=== PATIENT | female | born 1955 | race Caucasian/White ===

== ENCOUNTER 2024-10-09 12:36 | Outpatient (REF) | payer MEDICARE, SELFPAY ==
--- NOTE | ~2024-10-09 | XR_ITS ---
CLINICAL HISTORY: M41.56 - Other secondary scoliosis, lumbar region 4 views lumbar spine Comparison: None Findings: Prominent S shaped thoracolumbar scoliosis with levoscoliosis lumbar spine measured at 28 degrees and less pronounced curvature to the right lower thoracic spine measured at 20 degrees. Mildly accentuated lumbar lordosis and increased thoracolumbar kyphosis. Degenerative appearing grade 1 retrolisthesis of L2 and L3. No apparent instability between flexion and extension. Normal vertebral body height. No acute compression fracture evident. Severe degenerative disc changes L1-2 through L4-5, slightly greater at L2-3 and L3-4. Moderate disc space narrowing with endplates intact at L5-S1. Pedicles intact. No destructive lesion apparent. Moderate facet arthritis [id number]-left at L2-3, L3-4 and L4-5 and greater to the left at L5-S1. SI joints intact. Nonobstructive bowel gas pattern. Included lung bases clear. Impression: Pronounced S shaped thoracolumbar scoliosis. Advanced degenerative disc changes L1-2 through L4-5. Moderate changes at L5-S1. No acute appearing bone abnormality. Degenerative alterations in alignment without apparent instability between flexion and extension. This document has been electronically signed by: Vasyl Solis MD on 10/11/2024 08:31:57
--- OUTSIDE RECORDS SUMMARY | 2024-10-09 15:10 | XMS_ITS | Clinical Summary ---
Author Organization [facility] Address [address] [place] [phone] Phone Care Team Providers Care Diaper Folder Name Role Phone Danielle Seo MD Primary Care Provider Encounters Date Type Department Care Team Description 08/07/2024 8:20 AM EST - 08/07/2024 11:59 PM EST Hospital Encounter [facility] [address] [phone] Encounter for screening mammogram for breast cancer Discharge Disposition: Home or Self Care from Last 3 Months Surgical History Surgery Date Site/Laterality Comments STEREOTACTIC CORE BIOPSY Social History Tobacco Use Types Packs/Day Years Used Date Smoking Tobacco: Never Assessed Sex and Gender Information Value Date Recorded Sex Assigned at Not on file Gender Identity Not on file Sexual Orientation Not on file Job Start Date Occupation Industry Not on file Not on file Not on file Obstetrics History Para Term AB IAB SAB Ectopic Multiple Livin g Live Births 1 Last Filed Vital Signs Vital Sign Reading Time Taken Comments Blood Pressure - - Pulse - - Temperature - - Respiratory Rate - - Oxygen Saturation - - Inhaled Oxygen Concentration - - Weight 63.5 kg (140 lb) 08/07/2024 8:46 AM EST Height 167.6 cm (5' 6 ) 08/07/2024 8:46 AM EST Body Mass Index 22.6 08/07/2024 8:46 AM EST Plan of Treatment Health Maintenance Due Date Last Done Comments Pneumococcal Vaccine: 65+ Years (1 of 2 - PCV) 1959 DTaP,Tdap,and Td Vaccines (1 - Tdap) 1972 Zoster Vaccines (1 of 2) 2003 RSV Immunization Patients 60+ Years Old (1 - Risk 60-74 years 1-dose series) 2013 Colorectal Cancer Screening: Colonoscopy 08/07/2022 Depression Screening 08/07/2022 Falls Risk Assessment 08/07/2022 Hepatitis C Screening 08/07/2022 Medicare Annual Wellness Visit 08/07/2022 Social Influencers of Health Screening 08/07/2022 COVID-19 Vaccine ( season) 2024 Influenza Vaccine (#1) 2024 Breast Cancer Screening 08/07/2026 08/07/20, 06/23/2023, 01/07/2022, Additional history exists Osteoporosis Screening (Bone Density Screening) 01/08/2032 01/07/2022 HIB Vaccines Aged Out No longer eligi ble based on patient's age to complete this topic HPV Vaccines Aged Out No longer eligi ble based on patient's age to complete this topic Hepatitis A Vaccines Aged Out No long er eligible based on patient's age to complete this topic Hepatitis B Vaccines Aged Out No long er eligible based on patient's age to complete this topic IPV Vaccines Aged Out No longer eligi ble based on patient's age to complete this topic MMR Vaccines Aged Out No longer eligi ble based on patient's age to complete this topic Meningococcal ACWY Vaccine Aged Out N o longer eligible based on patient's age to complete this topic RSV Immunization Patients Under 20 months Aged Out No longer eligible based on patient's age to complete this topic Varicella Vaccines Aged Out No longer eligible based on patient's age to complete this topic Procedures Procedure Name Priority Date/Time Associated Diagnosis Comments MG MAMMO DIGITAL SCREENING W MARILEE BILAT Routine 08/07/2024 9:09 AM EST Encounter for screening mammogram for breast cancer NICK DEXA AXIAL SKELETON Routine 01/07/2022 3:04 PM EDT Other specified disorders of bone density and structure, right thigh from Last 3 Months or Most Recently Relevant to Health Maintenance Results * MG Mammo Digital Screening w Marilee bilat (08/07/2024 9:09 AM EST) Anatomical Region Laterality Modality Breast Bilateral Mammography 08/07/2024 9:39 AM EST Impressions 08/07/2024 9:42 AM EST No evidence of breast malignancy. BI-RADS CATEGORY: 2 - BENIGN RECOMMENDATION: Screening bilateral mammogram is recommended in 1 year. Mammo Location: [facility], [address] [place] [address], [id number], . -------- FINAL REPORT -------- Dictated By: Erica Thompson Dictated Date: 08/07/2024 09:39 ET Assigned Physician: Erica Thompson Reviewed and Electronically Signed By: Erica Thompson Signed Date: 08/07/2024 09:42 ET Workstation ID: [id number] Transcribed By: Self Edit Transcribed Date: 08/07/2024 09:39 ET Narrative 08/07/2024 9:42 AM EST CLINICAL: 69 years old, Female, routine annual exam. COMPARISON: 08/24/2023, 07/03/2023, 06/21/2023, 01/07/2022 ?? TECHNIQUE: Bilateral MLO and CC views were obtained digitally with 3-D mammogram (digital breast tomosynthesis). Computer-aided detection was utilized in evaluation of this exam (CAD). FINDINGS: There is no evidence of suspicious mass or architectural distortion. ??No worrisome calcifications are evident. ??There has been no significant change from prior exam(s). ? Stable biopsy markers and postbiopsy changes in the left breast. BREAST DENSITY: B - There are scattered areas of fibroglandular density. Procedure Note Erica Thompson MD - 08/07/2024 CLINICAL: 69 years old, Female, routine annual exam. COMPARISON: 08/24/2023, 07/03/2023, 06/21/2023, 01/07/2022 TECHNIQUE: Bilateral MLO and CC views were obtained digitally with 3-Dmammogram (digital breast tomosynthesis). Computer-aided detection wasutilized in evaluation of this exam (CAD). FINDINGS: There is no evidence of suspicious mass or architectural distortion. Noworrisome calcifications are evident. There has been no significantchange from prior exam(s). Stable biopsy markers and postbiopsychanges in the left breast. BREAST DENSITY: B - There are scattered areas of fibroglandular density. IMPRESSION: No evidence of breast malignancy. BI-RADS CATEGORY: 2 - BENIGN RECOMMENDATION: Screening bilateral mammogram is recommended in 1 year. Mammo Location: [facility], [address] [place] [address], [id number], . -------- FINAL REPORT -------- Dictated By: Erica Thompson Dictated Date: 08/07/2024 09:39 ET Assigned Physician: Erica Thompson Reviewed and Electronically Signed By: Erica Thompson Signed Date: 08/07/2024 09:42 ET Workstation ID: [id number] Transcribed By: Self Edit Transcribed Date: 08/07/2024 09:39 ET Self Referral Sppl IMG BI PROCEDURES * NICK DEXA AXIAL SKELETON (01/07/2022 3:04 PM EDT) Anatomical Region Laterality Modality Mammography 01/07/2022 1:36 PM EDT Narrative 01/07/2022 3:04 PM EDT [facility] Diagnostic Imaging Department [address] [place] [id number] Patient: ??LISA SNYDER ?/Age/Sex: 1955 - F Unit#: ??[id number] ? Location/Status: ??SPDIMAM/REG CLI ? Mnemonic/Ordering Site: ??MAMDEXAAX/SPMAM Ordering Physician: ??KAVYA PETERS MD Nick Dexa Axial Skeleton - 01/07/22 - 1432 History: Low estrogen state due to menopause. Current smoker. Comparison: 02/10/17 Findings: Bone densitometry is performed utilizing dual energy x-ray absorptiometry (DXA) in the [employer] unit. The lumbar spine and proximal femora are evaluated in the AP projection. The FRAX questionaire was completed. The results indicate low bone mass (osteopenia), with a right total femur T- score of -1.1. There has been a statistically significant decrease in bone mineral density in the right total femur since the previous study. ??The detailed DEXA report will be mailed to the referring physician's office. DualFemur FRAX: 10-year Probability of Fracture: Major Osteoporotic 7.5 percent Hip 0.9 percent. IMPRESSION: Osteopenia. [id number] Dictating Physician: ??BRITTANIE ORTEGA MD Electronically Signed by: ??BRITTANIE ORTEGA MD Dic Date/Time: ??01/07/22 1503 Sign date/Time: ??01/07/22 1504 Procedure Note Brittanie Ortega MD - 08/24/2022 [facility] Diagnostic Imaging Department [address] [place] [address] Patient: LISA SNYDER D.O.B./Age/Sex: 1955 - 66 - F Unit#: [id number] [facility] Ordering Physician: KAVYA PETERS MD Nick Dexa Axial Skeleton - 01/07/22 - 1432 History: Low estrogen state due to menopause. Current smoker. Comparison: 02/10/17 Findings: Bone densitometry is performed utilizing dual energy x-ray absorptiometry(DXA) in the [employer] unit. The lumbar spine and proximal femora areevaluated in the AP projection. The FRAX questionaire was completed. The results indicate low bone mass (osteopenia), with a right total femurT- score of -1.1. There has been a statistically significant decrease inbone mineral density in the right total femur since the previous study. Thedetailed DEXA report will be mailed to the referring physician's office. Dual[employer]emur FRAX: 10-year Probability of Fracture: Major Osteoporotic 7.5percent Hip 0.9 percent. IMPRESSION: Osteopenia. [id number] Dictating Physician: BRITTANIE ORTEGA MD Electronically Signed by: BRITTANIE ORTEGA MD Dic Date/Time: 01/07/22 1503 Sign date/Time: 01/07/22 1504 Kavya Peters MD IMG BI PROCEDURES from Last 3 Months or Most Recently Relevant to Health Maintenance Care Teams Diaper Folder Relationship Specialty Start Date End Date Danielle Seo MD [address] [place] [phone] PCP - General Internal Medicine 07/31/24
== END 2024-10-09 12:37 | disposition home or self-care (01) ==
LOC: HO.HOSX 12:36
PROVIDERS: Visit Provider Neurological Surgery
DX: M48.062 Spinal stenosis, lumbar region with neurogenic claudication (principal); M41.56 Other secondary scoliosis, lumbar region
CPT/HCPCS: 72110; 99202

== ENCOUNTER → 2024-10-09 13:54 | Outpatient (BNV) | payer MEDICARE, SELFPAY | PROVIDERS: Visit Provider Radiology Diagnostic Radiology | DX: M41.57 Other secondary scoliosis, lumbosacral region (principal) | CPT/HCPCS: 72110 ==

== ENCOUNTER 2024-10-23 11:19 | Outpatient (AMB) | payer MEDICARE, SELFPAY ==
--- NOTE | 2024-10-23 11:49 | HO.SPINEOV ---
Intake Visit Reasons: F/u after MRI Intake Note: Ms. Low is here today to F/u on her MRI Results. Shortage Worker Required: No Allergies Sulfa (Sulfonamide Antibiotics) Allergy (Mild, Verified 10/23/24 11:52) Rash Assessment & Plan Assessment & Plan (1) Lumbar stenosis with neurogenic claudication: Code(s): M48.062 - Spinal stenosis, lumbar region with neurogenic claudication Category: Medical Plan Dear colleague, On 10/23/2024 I saw for follow-up Maureen Albrecht to review her latest MRI of the lumbar spine. Her history reveals that she developed back pain radiating to her hips with walking and predominantly standing and July. Subsequently she developed severe radiating pain down her left leg in an L5 distribution, which mostly has resolved but is still present. She was seen at [facility] where she was offered a scoliosis correction to address the symptoms. She came to see me for 2nd opinion. I ordered a new MRI of the lumbar spine which was done on 10/16/2024 at [place], which shows a disc herniation L4-5 on the left side causing not only central spinal stenosis but also compression of the exiting L4 and L5 nerve roots. This abnormality was not seen on the MRI of 2020. In my opinion, the patient is symptomatic from the L4-5 level and her symptoms are not related to her scoliotic thoracolumbar curve. In fact, the curve has been stable over years. I told the patient that I would offer her a L4-5 decompression with removal of the herniated disc to not only address the central stenosis but also to decompress the exiting nerve roots. Correction of the scoliotic curve would not be my 1st plan based on her history. She is going to think about this option and will get back to me. I spent 30 minutes in his consult to review imaging and to answer questions. Mikhail Pandya MD, PhD Spine Fellowship Trained Neurosurgeon Director, [facility] Coding Level of Care Code Est Pt Level 4 (46039) Diagnoses Lumbar stenosis with neurogenic claudication M48.062
--- OUTSIDE RECORDS SUMMARY | 2024-10-23 12:01 | XMS_ITS | Continuity of Care Document ---
Author Organization [facility] ter Address [address] [place] [id number]- Care Team Providers Care Budget Clerk Name Role Phone Danielle Seo MD Primary Care Physician [phone] Encounter 10/16/24 - 10/17/[address] [address]- Attending Physician: Not on Staff, Attending MD Referring Physician: Not on Staff, Referring MD Encounter Type: [facility] Allergies, Adverse Reactions, Alerts Substance Criticality Severity Reaction Reaction Severity Status Bactrim DS High criticality Moderate hives Ac tive Medications Albuterol (Eqv-ProAir HFA) 90 mcg/inh inhalation aerosol 2 puffs, Inhalation, Every 6 hours, # 8 Gm, 0 Refills, Maintenance, 03/20/24 8:19:00 AM EDT, [facility] #[id number], Partial fill upon patient request if the prescription is for a schedule II opioid drug., 2 puffs Inhalation Every 6 hours, 165, cm, 03/11/24 10:29:00 EDT, Height Start Date: 03/20/24 Status: Ordered Quantity: 8.0 Unit: g Repeat number: 1 aloe vera oral capsule 1 capsule, By Mouth, 2 times a day, # 60 capsule, 0 Refills, Maintenance, 01/31/19 11:15:13 AM EDT, Capsule Start Date: 01/31/19 Status: Ordered Quantity: 60.0 Unit: capsule Repeat number: 1 aspirin 81 mg oral tablet 2 tablet = 162 mg, By Mouth, Daily, # 90 tablet, 0 Refills, Maintenance, 01/31/19 11:15:02 AM EDT, Tablet Start Date: 01/31/19 Status: Ordered Quantity: 90.0 Unit: tablet Repeat number: 1 EpiPen 2-Mike 0.3 mg injectable kit = 0.3 mg, Intramuscular, Once, may repeat if necessary, # 1 kit, 11 Refills, Soft Stop, 01/16/23 1:58:00 PM EDT, [facility] #[id number], Partial fill upon patient request if the prescription is for a schedule II opioid drug., 165, cm, 04/07/22 15:39:00 EDT, Height Start Date: 01/16/23 Status: Ordered Quantity: 1.0 Unit: kit Repeat number: 12 estradiol 0.1 mg/g vaginal cream = 1 Gm, 0 Refills, Maintenance, 02/27/24 9:35:00 AM EDT, Partial fill upon patient request if the prescription is for a schedule II opioid drug. Start Date: 02/27/24 Status: Ordered Repeat number: 1 Robitussin DM Liquid By Mouth, Every 4 hours, 0 Refills, Maintenance, 03/11/24 10:15:00 AM EDT, Partial fill upon patient request if the prescription is for a schedule II opioid drug. Start Date: 03/11/24 Status: Ordered Repeat number: 1 Tylenol Extra Strength 500 mg oral tablet 1 tablet = 500 mg, By Mouth, 3 times a day, PRN as needed for pain, # 100 tablet, 0 Refills, Maintenance, 03/11/24 10:14:00 AM EDT, Tablet, Partial fill upon patient request if the prescription is for a schedule II opioid drug. Start Date: 03/11/24 Status: Ordered Quantity: 100.0 Unit: tablet Repeat number: 1 Vitamin C By Mouth, Daily, 0 Refills, Maintenance, 01/19/22 7:01:00 AM EDT, Partial fill upon patient request if the prescription is for a schedule II opioid drug. Start Date: 01/19/22 Status: Ordered Repeat number: 1 Vitamin D3 1000 intl units oral tablet 1 tablet = 1,000 International_Units, By Mouth, Daily, # 30 tablet, 0 Refills, Maintenance, 01/31/1911:16:13 AM EDT, Tablet Start Date: 01/31/19 Status: Ordered Quantity: 30.0 Unit: tablet Repeat number: 1 zinc (as acetate) 25 mg oral capsule See Instructions, 1 capsule EVERY OTHER DAY, 0 Refills, Maintenance, 09/05/24 12:38:00 PM EST, Partial fill upon patient request if the prescription is for a schedule II opioid drug. Start Date: 09/05/24 Status: Ordered Repeat number: 1 Problem List Condition Confirmation Course Effective Dates Status H ealth Status Informant Allergic rhinitis Confirmed Active Back pain Confirmed Active Bee sting reaction Confirmed Active Bradycardia Confirmed Active Discogenic cervical pain Confirmed Active Chronic low back pain Confirmed Active Chronic obstructive lung disease Confirmed Active Vaccine counseling Confirmed Active Decreased estrogen level Confirmed Active Degeneration of lumbar intervertebral disc Confirmed Active Degenerative joint disease involving multiple joints Confirmed Active Diverticula of intestine Confirmed Active Elevated blood-pressure reading without diagnosis of hypertension Confirmed Active History of folliculitis Confirmed Active H/O: TIA Confirmed Active History of basal cell carcinoma (BCC) of skin Confirmed Active Skin lesion of face Confirmed Active Lumbar pain with radiation down left leg Confirmed Active Lumbar radiculopathy Confirmed Active Menopausal symptom Confirmed Active Nicotine dependence Confirmed Active Patent foramen ovale Confirmed Active Health care maintenance Confirmed Active Medicare annual wellness visit, subsequent Confirmed Active Screening for viral disease Confirmed Active Low vitamin D level Confirmed Active Results Radiology Reports * Exam Date Time Procedure Performing Provider Status 10/16/24 8:22 AM MRI Lumbar Spine W/O Contrast Auth (Verified) Notes: (MRI Lumbar Spine W/O Contrast) Reason For Exam: Other secondary scoliosis, lumbar region;Other secondary scoliosis, lumbar region RESULT: MRI Lumbar Spine W/O Contrast [facility] VISIT NUMBER :[id number] Patient Name: Maureen Snyder Date of : 1955 Date of Exam: 10-16-2024 Referring Physician: Mikhail [facility] [address] [place] [id number] Exam: MR Lumbar Spine (C-) CPT 76587 Room Description: [facility] 1.5 HISTORY: Secondary scoliosis. Difficulty standing for long periods of time. Pain from the mid back to both hips. Left leg weakness. TECHNIQUE: Multiplanar multisequence MRI of the thoracic and lumbar spine without contrast. COMPARISON: 11/09/2020 FINDINGS: MRI OF THE THORACIC SPINE There is a mild-moderate rightward curvature of the thoracic spine on the coronal localizer images. Reversal of the cervical lordosis is noted on the localizer images with mild degenerative anterolisthesis of C7 on T1, T1 on T2, and T2 on T3. The thoracic vertebral bodies are normal in height. No marrow edema of the thoracic vertebrae. Loss of disc space height is most pronounced at T2-T3. Marginal osteophytes and facet arthroses are present at several levels. The thoracic cord is normal in caliber and signal. The paraspinal soft tissues are unremarkable. At T1-T2, there is mild degenerative anterolisthesis and facet arthrosis. No central canal stenosis. No right and mild left foraminal narrowing. At T2-T3, there is facet arthrosis. No central canal stenosis. Mild right and no left foraminal narrowing. At T3-T4, there is a small right paracentral disc extrusion extending superiorly with minimal central canal narrowing. Mild facet arthrosis. At T8-T9, there is a small left subarticular disc protrusion with mild indentation of the ventral thecal sac. No right and subtle left foraminal narrowing. At T9-T10, there is a right subarticular disc protrusion with mild right central canal narrowing. Mild foraminal narrowing. At T10-T11, there is a mild broad-based posterior disc bulge and facet arthrosis. No central canal stenosis. Probable mild bilateral foraminal narrowing. At T11-T12, there is facet arthrosis. Minimal central canal narrowing. MRI OF THE LUMBAR SPINE There is a mild left and moderate leftward curvature of the lumbar spine on the coronal localizer images. Subtle retrolisthesis of L2 on L3 is again noted. The lumbar vertebral bodies are unchanged in height. Severe loss of height of L1-L2, L2-L3, and L3-L4. Moderate-severe loss of height of L4-L5. Modic type I endplate change is present at L1-L2. Mild Modic type I endplate changes also present posteriorly at L3-L4 and L4-L5. Marginal osteophytes, facet arthroses, and vacuum disc phenomenon are present at multiple levels. Fatty atrophy of the posterior paraspinal musculature. No new acute retroperitoneal abnormality. Small gallstone. L1-L2: A concentric disc-osteophyte complexes more pronounced posteriorly. Mild facet arthrosis. Mild central canal narrowing and right subarticular recess narrowing. Moderate right and probable moderate left foraminal stenosis. L2-L3: Concentric disc-osteophyte complex with a superimposed calcified or ossified right paracentral disc extrusion extending above the level of the disc space. Mild central canal and right subarticular recess narrowing, not significantly changed. Mild-moderate right and minimal left foraminal narrowing. L3-L4: Concentric disc-osteophyte complex, facet arthrosis, and mild ligamentum flavum infolding. Mild central canal and subarticular recess narrowing. Mild-moderate right and mild left foraminal stenosis. L4-L5: Concentric disc-osteophyte complex and mild facet arthrosis. Superimposed left paracentral-subarticular disc protrusion. Probable left foraminal disc protrusion. Mild-moderate left central canal narrowing with left subarticular recess stenosis and crowding of the left L5 nerve roots. Mild right and severe left foraminal stenosis. L5-S1: Facet arthrosis. Minimal broad-based posterior disc bulge. Mild left subarticular recess narrowing without traversing nerve root impingement. Minimal right and moderate-severe left foraminal stenosis. IMPRESSION: Degenerative changes of the lumbar spine superimposed upon a S-shaped curvature of the thoracolumbar spine. No thoracic cord or cauda equina compression. Central canal and foraminal narrowing are present at multiple levels, and these findings can be correlated with the patient's symptoms and neurological examination. Electronically Signed By: Jaime Irvin MD Dictated By: Not on Staff CHARITO MD Dictated Date/Time: 10/17/24 5:03 pm Reviewed By: Not on Staff CHARITO MD Signed By: Not on Staff CHARITO MD Signed Date/Time: 10/17/24 5:03 pm Transcribed By: LEANNA Transcribed Date/Time: 10/17/24 5:03 pm * Exam Date Time Procedure Performing Provider Status 10/16/24 8:23 AM MRI Thoracic Spine W/O Contrast Auth (Verified) Notes: (MRI Thoracic Spine W/O Contrast) Reason For Exam: Other secondary scoliosis, lumbar region;Other secondary scoliosis, lumbar region RESULT: MRI Thoracic Spine W/O Contrast [facility] VISIT NUMBER :[id number] Patient Name: Maureen Snyder Date of : 1955 Date of Exam: 10-16-2024 Referring Physician: Mikhail [facility] [address] [place] [id number] Exam: MR Thoracic Spine (C-) CPT 34024 Room Description: [facility] 1.5 HISTORY: Secondary scoliosis. Difficulty standing for long periods of time. Pain from the mid back to both hips. Left leg weakness. TECHNIQUE: Multiplanar multisequence MRI of the thoracic and lumbar spine without contrast. COMPARISON: 11/09/2020 FINDINGS: MRI OF THE THORACIC SPINE There is a mild-moderate rightward curvature of the thoracic spine on the coronal localizer images. Reversal of the cervical lordosis is noted on the localizer images with mild degenerative anterolisthesis of C7 on T1, T1 on T2, and T2 on T3. The thoracic vertebral bodies are normal in height. No marrow edema of the thoracic vertebrae. Loss of disc space height is most pronounced at T2-T3. Marginal osteophytes and facet arthroses are present at several levels. The thoracic cord is normal in caliber and signal. The paraspinal soft tissues are unremarkable. At T1-T2, there is mild degenerative anterolisthesis and facet arthrosis. No central canal stenosis. No right and mild left foraminal narrowing. At T2-T3, there is facet arthrosis. No central canal stenosis. Mild right and no left foraminal narrowing. At T3-T4, there is a small right paracentral disc extrusion extending superiorly with minimal central canal narrowing. Mild facet arthrosis. At T8-T9, there is a small left subarticular disc protrusion with mild indentation of the ventral thecal sac. No right and subtle left foraminal narrowing. At T9-T10, there is a right subarticular disc protrusion with mild right central canal narrowing. Mild foraminal narrowing. At T10-T11, there is a mild broad-based posterior disc bulge and facet arthrosis. No central canal stenosis. Probable mild bilateral foraminal narrowing. At T11-T12, there is facet arthrosis. Minimal central canal narrowing. MRI OF THE LUMBAR SPINE There is a mild left and moderate leftward curvature of the lumbar spine on the coronal localizer images. Subtle retrolisthesis of L2 on L3 is again noted. The lumbar vertebral bodies are unchanged in height. Severe loss of height of L1-L2, L2-L3, and L3-L4. Moderate-severe loss of height of L4-L5. Modic type I endplate change is present at L1-L2. Mild Modic type I endplate changes also present posteriorly at L3-L4 and L4-L5. Marginal osteophytes, facet arthroses, and vacuum disc phenomenon are present at multiple levels. Fatty atrophy of the posterior paraspinal musculature. No new acute retroperitoneal abnormality. Small gallstone. L1-L2: A concentric disc-osteophyte complexes more pronounced posteriorly. Mild facet arthrosis. Mild central canal narrowing and right subarticular recess narrowing. Moderate right and probable moderate left foraminal stenosis. L2-L3: Concentric disc-osteophyte complex with a superimposed calcified or ossified right paracentral disc extrusion extending above the level of the disc space. Mild central canal and right subarticular recess narrowing, not significantly changed. Mild-moderate right and minimal left foraminal narrowing. L3-L4: Concentric disc-osteophyte complex, facet arthrosis, and mild ligamentum flavum infolding. Mild central canal and subarticular recess narrowing. Mild-moderate right and mild left foraminal stenosis. L4-L5: Concentric disc-osteophyte complex and mild facet arthrosis. Superimposed left paracentral-subarticular disc protrusion. Probable left foraminal disc protrusion. Mild-moderate left central canal narrowing with left subarticular recess stenosis and crowding of the left L5 nerve roots. Mild right and severe left foraminal stenosis. L5-S1: Facet arthrosis. Minimal broad-based posterior disc bulge. Mild left subarticular recess narrowing without traversing nerve root impingement. Minimal right and moderate-severe left foraminal stenosis. IMPRESSION: Degenerative changes of the lumbar spine superimposed upon a S-shaped curvature of the thoracolumbar spine. No thoracic cord or cauda equina compression. Central canal and foraminal narrowing are present at multiple levels, and these findings can be correlated with the patient's symptoms and neurological examination. Electronically Signed By: Jaime Irvin MD Dictated By: Not on Staff , CHARITO SIBLEY Dictated Date/Time: 10/17/24 5:03 pm Reviewed By: Not on Staff , CHARITO SIBLEY Signed By: Not on Staff , CHARITO SIBLEY Signed Date/Time: 10/17/24 5:03 pm Transcribed By: TS Transcribed Date/Time: 10/17/24 5:03 pm Social History Social History Type Response Smoking Status 10 or more cigarette s (1/2 pack or more)/day in last 30 days entered on: 01/31/19 Sex Sex Representation Female (finding) Patient Care team information Care Team Personnel Name: Gabbi SIBLEY, Danielle Tillman Position: S Physician - Primary Care Member Role: PCP [address]: [address] [place] [address], [address] Telecom: Care Team Related Persons Name: LISETH SNYDER Name: ÓSCAR SNYDER Insurance Providers Guarantor name: MAUREEN SNYDER Health Plan Information #: 1 Payer: MEDICARE PART B OUTPT Member Number: NA Policy Number: NA Group Number: NA Health Plan Information #: 2 Payer: [employer] Member Number: NA Policy Number: NA Group Number: NA
--- OUTSIDE RECORDS SUMMARY | 2024-10-23 12:01 | XMS_ITS | Patient Health Record ---
Author Organization [facility] Address [address] [place] [address] Care Team Providers Care Photo Manager Name Role Phone Kavya Quintana Unavailable [phone] MOE SAGEA Unavailable [phone] Allergies Allergen (clinical drug ingredient) Drug/Non Drug Allergy documented on EMR Reaction Allergy Type Onset Date Status sulfamethoxazole / trimethoprim Bactrim DS Rash/Hives Drug Allergy Active Results Component Value Reference Range Notes Urinalysis Reviewed date:01/15/2024 02:22:37 PM Interpretation: Performing Lab: Notes/Report: NITRITE NEG PH 5.0 PROTEIN NEG S.G 1.000 WBC NEG GLUCOSE NEG KETONES NEG UROBILINOGEN NEG BILIRUBIN NEG BLOOD LARGE Urine Culture, Routine-[id number] Reviewed date:01/19/2024 09:42:48 AM Interpretation: Performing Lab:Arlen Wick, [address], [address], [place], Phone - [phone], Director - [facility] Notes/Report: Urine Culture, Routine Final report Result 1 Escherichia coli Greater than 100,000 colony forming units per mL Cefazolin <=4 ug/mL Cefazolin with an MERRY <=16 predicts susceptibility to the oral agents cefaclor, cefdinir, cefpodoxime, cefprozil, cefuroxime, cephalexin, and loracarbef when used for therapy of uncomplicated urinary tract infections due to E. coli, Klebsiella pneumoniae, and Proteus mirabilis. Antimicrobial Susceptibility S = Susceptible; I = Intermediate; R = Resistant P = Positive; N = Negative MICS are expressed in micrograms per mL Antibiotic RSLT#1 RSLT#2 RSLT#3 RSLT#4 Amoxicillin/Clavulanic Acid S Ampicillin S Cefepime S Ceftriaxone S Cefuroxime S Ciprofloxacin S Ertapenem S Gentamicin S Imipenem S Levofloxacin S Meropenem S Nitrofurantoin S Piperacillin/Tazobactam S Tetracycline S Tobramycin S Trimethoprim/Sulfa S PDF Report Reviewed date:01/19/2024 10:19:31 AM Interpretation: Performing Lab:[facility] [place], [address], [address], [place], Phone - [phone], Director - [facility] Notes/Report: Urinalysis Reviewed date:02/09/2024 09:58:07 AM Interpretation: Performing Lab: Notes/Report: NITRITE NEG PH 5.0 PROTEIN NEG S.G 1.005 WBC POS GLUCOSE NEG KETONES NEG UROBILINOGEN NEG BILIRUBIN NEG BLOOD LG Urinalysis, Complete-[id number] Reviewed date:02/13/2024 09:52:22 AM Interpretation: Performing Lab:[facility], [address] [facility], Phone - [phone], Director - [place] Notes/Report: Clinical Information:SRC: URINE Clinical Information:SRC: URINE Specific [place] 1.005 1.005-1.030 pH 7.0 5.0-7.5 Urine-Color Yellow Yellow Appearance Clear Clear WBC Esterase 3+ Negative Protein Negative Negative/Trace Glucose Negative Negative Ketones Negative Negative Occult Blood Trace Negative Bilirubin Negative Negative Urobilinogen,Semi-Qn 0.2 0.2-1.0 mg/dL Nitrite, Urine Negative Negative Microscopic Examination See below: Micr oscopic was indicated and was performed. WBC 11-30 0 - 5 /hpf RBC None seen 0 - 2 /hpf Epithelial Cells (non renal) 0-10 0 - 10 /hpf Casts None seen None seen /lpf Bacteria Many None seen/Few Urine Culture, Routine-[id number] Reviewed date:02/13/2024 09:51:59 AM Interpretation: Performing Lab:[facility], [address], Phone - [phone], Director - [place] Notes/Report: Clinical Information:SRC: URINE Clinical Information:SRC: URINE Urine Culture, Routine Final report Result 1 Escherichia coli 50,000-100,000 colony forming units per mL Cefazolin <=4 ug/mL Cefazolin with an MERRY <=16 predicts susceptibility to the oral agents cefaclor, cefdinir, cefpodoxime, cefprozil, cefuroxime, cephalexin, and loracarbef when used for therapy of uncomplicated urinary tract infections due to E. coli, Klebsiella pneumoniae, and Proteus mirabilis. Antimicrobial Susceptibility S = Susceptible; I = Intermediate; R = Resistant P = Positive; N = Negative MICS are expressed in micrograms per mL Antibiotic RSLT#1 RSLT#2 RSLT#3 RSLT#4 Amoxicillin/Clavulanic Acid S Ampicillin S Cefepime S Ceftriaxone S Cefuroxime S Ciprofloxacin S Ertapenem S Gentamicin S Imipenem S Levofloxacin S Meropenem S Nitrofurantoin S Piperacillin/Tazobactam S Tetracycline S Tobramycin S Trimethoprim/Sulfa S PDF Report Reviewed date:02/13/2024 09:51:20 AM Interpretation: Performing Lab:Arlen Ngo, [address] [place] [address], Phone - [phone], Director - [place] Notes/Report: Clinical Information:SRC: URINE Urine Culture, Routine-[id number] Reviewed date:02/20/2024 05:32:28 PM Interpretation: Performing Lab:Arlen Wick, [address], [address], [place], Phone - [phone], Director - [facility] Notes/Report: Clinical Information:SRC: Clinical Information:SRC: Urine Culture, Routine Final report Result 1 Culture shows less than 10,000 colony forming units of bacteria per milliliter of urine. This colony count is not generally considered to be clinically significant. PDF Report Reviewed date:02/20/2024 05:33:15 PM Interpretation: Performing Lab:Pamela Horowitz Beatriz Lindsay, [facility] [address], [place], Phone - [phone], Director - [facility] Notes/Report: Clinical Information:SRC: Reason For Referral No Information Medications Medication SIG (Take, Route, Frequency, Duration) Notes Start Date End Date Status Tylenol 325 MG 1 tablet as needed Orally every 4 hrs Active Estradiol Vaginal Cream 0.01% 1 Gram to the affected area Vaginal/Vulva Twice a week for 90 Days 07/18/2024 Active Aspirin 162.5 MG 1 capsule Orally Onc e a day for 30 day(s) Active Vitamin C 500MG 1 ORAL daily for -3 [facility]- 08/03/2011 Active Aloe Vera 25 MG Orally unknown dose A ctive valACYclovir HCl 500 MG 2 TABS Orally TW ICE DAILY FOR 10 DAYS THEN 1 TAB DAILY FOR 90 DAYS. for 90 days 07/10/2024 Active Vitamin D3 1000 IU 1 ORAL daily for -3 [facility] 08/03/2011 Active Social History Tobacco Use: Social History Observation Description Date Details (start date - stop date) Current Smoker NA - NA AUDIT-C (Standard) Question Answer Notes Did you have a drink contain ing alcohol in the past year? Yes How often did you have six o r more drinks on one occasion in the past year? Never (0 point) How many drinks did you have on a typical day when you were drinking in the past year? 1 or 2 drinks (0 point) How often did you have a dri nk containing alcohol in the past year? Monthly or less (1 point) Points 1 Interpretation Negative Tobacco Control (Standard) Question Answer Notes Tobacco use: Current smoker How often do you smoke cigarettes? Every day How many cigarettes a day do you smoke? 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) Unspecified cerebral artery occlusion without mention of cerebral infarction (434.90) Active confirmed Major Problem Menopausal symptom (05870329) Symptomatic menopausal or female climacteric states (627.2) Active confirmed Major Problem Ventricular septal defect (65561162) Ventricular septal defect (745.4) Active confirmed Major Problem Gynecological examination normal (287404175143474) Routine gynecological examination (V72.31) Active confirmed Major Problem Screening for malignant neoplasm of colon (166445695) Special screening for malignant neoplasms, colon (V76.51) Active confirmed Major Vital Signs Temperature 98.1 degrees Fahrenheit 07/10/2024 Blood pressure diastolic 76 mm Hg 07/10/2024 Height 65.8 in 07/10/2024 Blood pressure systolic 128 mm Hg 07/10/2024 Weight 140 lbs 07/10/2024 BMI 22.73 kg/m2 07/10/2024 Encounters Encounter Location Date Provider Diagnosis [address] [place] [address] 12/01/2023 Kavya Quintana Encounter for screen ing mammogram for malignant neoplasm of breast Z12.31 ; Encounter for gynecological examination (general) (routine) with abnormal findings Z01.411 and Postmenopausal atrophic vaginitis N95.[address] [address] 01/15/2024 CHAD SAGE Dysuria R30.0 and Frequency of micturition R35.[address] [address] 02/09/2024 Kavya Quintana Urinary tract infection, site not specified N39.0 and Postmenopausal atrophic vaginitis N95.[address] [address] 07/10/2024 Kavya Quintana Other specified noninflammatory disorders of vulva and perineum N90.[address] [address] 01/15/2024 Kavya Quintana Abscess of vulva N76 .[address] [address] 01/18/2024 Kavya Quintana Total [address] [address] 02/23/2024 Kavya Quintana Total [address] [address] 07/10/2024 Kavya Quintana Total [address] [address] 07/12/2024 Kavya Quintana Total [address] [address] 07/18/2024 Kavya Quintana Total [address] [address] 07/18/2024 Kavya Quintana Assessments Encounter Date Diagnosis (ICD Code) Assessment Notes Treatment Notes Treatment Clinical Notes Section Notes 12/01/2023 Encounter for gynecological examination (general) (routine) with abnormal findings (ICD-10 - Z01.411) NO MORE PAP TESTS. 12/01/2023 Encounter for screening mammogram for malignant neoplasm of breast (ICD-10 - Z12.31) REGULAR MAMMOGRAMS AND SBE'S WERE RECOMMENDED. 01/15/2024 Dysuria (ICD-10 - R30.0) plenty of fluids orally , AZO as needed , Tylenol 3-4 times a day as needed , Call if not better. She prefers to start treatment of UTI prior to getting the culture results. Discussed it may or may not be an infection, it could be kidney stones. If no infection, I encouraged her to seek care either at ER or PCP. 01/15/2024 Abscess of vulva (ICD-10 - N76.4) 02/09/2024 Postmenopausal atrophic vaginitis (ICD-10 - N95.2) DISCUSSED FINDINGS AND RECOMMENDED INTRAVAGINAL ESTROGEN WHICH MAY DECREASE FREQUENCY OF UTI'S AND KEEP HER BLADDER MORE RESISTANT TO INFECTION. PAT AGREED. SHE HAS NO CONTRAINDICATIONS AND ACCEPTS RISKS. RX AND INSTRUCTIONS FOR ESTRADIOL CREAM USE WERE GIVEN. 02/09/2024 Urinary tract infection, site not specified (ICD-10 - N39.0) DISCUSSED UTI'S ASSOCIATED WITH SEXUAL ACTIVITY. RECOMMENDED MACRODANTIN 50 MG AFTER IC. INCREASE FLUID INTAKE. RX FOR AUGMENTIN WAS GIVEN WITH DETAILED INSTRUCTIONS. CALL IF SHE HAS FREQUENT UTI'S AND WILL REFER TO PVU. 07/10/2024 Other specified noninflammatory disorders of vulva and perineum (ICD-10 - N90.89) DISCUSSED FINDINGS AND PROBABLE HSV 1 OR HSV 2. HERPES CULTURE WAS OBTAINED. APPLY DESITIN OR VASELINE TO THE AREA. RX AND INSTRUCTIONS FOR VALTREX WERE GIVEN. SHE WILL NEED 1 GRAM TWICE DAILY FOR 10 DAYS, THEN 500 MG DAILY FOR 3 TO 6 MONTHS. 01/15/2024 Frequency of micturition (ICD-10 - R35.0) 12/01/2023 Postmenopausal atrophic vaginitis (ICD-10 - N95.2) DISCUSSED FINDINGS, DX AND TX OPTIONS. PAT IS ASYMPTOMATIC. Plan Of Treatment Pending Test Test Name Order Date MAMMOGRAM, SCREENING 12/29/2014 MAMMOGRAM, SCREENING 06/20/2017 MAMMOGRAM, SCREENING 06/28/2018 MAMMOGRAM, SCREENING 07/16/2020 MAMMOGRAM, SCREENING 10/31/2022 Urinalysis 04/01/2022 Urinalysis 03/20/2020 Urinalysis 07/16/2020 ONE SWAB 07/10/2024 COMPLETE URINALYSIS 09/25/2023 THIN PREP,HPV,ROGER IF HPV+ (>29YR)(DIAG) 10/31/2022 THIN PREP,HPV,ROGER IF HPV+ (>29YR)(SCRN) 06/28/2018 BONE DENSITY 07/22/2021 MM Digital Mammo Screening 07/22/2021 MM Digital Mammo Screening 12/01/2023 MM Digital Mammo Screening 10/31/2022 MM Digital Mammo Screening 07/16/2020 MM Digital Mammo Screening 03/20/2020 MM Digital Mammo Screening 06/28/2018 MM Digital Mammo Screening 06/20/2017 LT BREAST STEREOTACTIC CORE BX 3 Next Appt Details Provider Name:Kayva Moses castellon, 12/11/2024 09:00:00 AM, [address], [address], [place], [address], Insurance Providers Payer Name Payer Address Payer Phone Subscriber Number Group Number Insured Name Patient Relationship to Insured Coverage Start Date Coverage End Date MEDICARE [address] [facility] [place], [place] [id number] LISA SNYDER Self - patient is the insured MEDEX [address] [place] [address] [id number] LISA SNYDER Self - patient is the insured Medical (General) History Medical History History ICD Code Occlusion and stenosis of unspecified ce rebral artery I66.9 Ventricular septal defect Q21.0 Menopausal and female climacteric states N95.1 Postmenopausal atrophic vaginitis N95.2 Rectal abscess K61.1 Cellulitis of groin L03.314 Mammographic microcalcification found on diagnostic imaging of breast R92.0 Epidermal cyst L72.0 Abscess of vulva N76.4 Surgical History Surgery Date(Month/Year) [place] Teeth Gum Graft Colonoscopy Hospitalization History Reason Date(Month/Year) S/P Stroke 1997 1 Vaginal Delivery
--- OUTSIDE RECORDS SUMMARY | 2024-10-23 12:02 | XMS_ITS ---
Author Organization [facility] Address [address] [address] Care Team Providers Care Car Audio Installer Name Role Phone QuintanaFelicitasbakari Diaz [phone] Medications Medication SIG (Take, Route, Frequency, Duration) Notes Start Date End Date Status Estradiol Vaginal Cream 0.01% 1 Gram to the affected area Vaginal/Vulva Twice a week for 90 Days 07/18/2024 Active Encounters Encounter Location Date Provider Diagnosis [facility] [employer] [address] 07/18/2024 Kavya Quintana Plan Of Treatment Medication Medication Name Sig Start Date Stop Date Notes Estradiol Vaginal Cream 0.01% 1 Gram to the affected area Vaginal/Vulva Twice a week for 90 Days 07/18/2024 Next Appt Details Provider Name:Kavya castellon, 12/11/2024 09:00:00 AM, [address] [place] [address], [address], [place], [address], Progress Notes * VERENA SNYDEROB: [birth year] (69 yo F)Acc No.[id number]:07/18/2024 Patient:?JANELLE SNYDERLYN :1955???Age:69 Y???Sex:Female Address: [address], , [place], [address] * Refills? Start Estradiol Vaginal Cream Cream, 0.01%, Vaginal/Vulva, 42.5 Gram, 1 Gram to the affected area, Twice a week, 90 Days, Refills=4 * true * Date:? Generated for Printi ng/Stfean/Génesis on:?10/23/2024 12:01 PM EST
--- OUTSIDE RECORDS SUMMARY | 2024-10-23 12:02 | XMS_ITS ---
Author Organization [facility] Address [address] [place] [address] Care Team Providers Care Weigher And Crusher Name Role Phone Kavya Quintana Unavailable [phone] REASON FOR VISIT RESULTS Encounters Encounter Location Date Provider Diagnosis [facility] [address] [place] [address] 07/18/2024 Kavya Quintana Plan Of Treatment Next Appt Details Provider Name:Kavya castellon, 12/11/2024 09:00:00 AM, [address], [address], [place], [address], Progress Notes * VERENA SNYDEROB: [birth year] (69 yo F)Acc No.[id number]:07/18/2024 Patient:?JANELLE SNYDERLYN :1955???Age:69 Y???Sex:Female Address:[address], , [place], [address] * true * Date:? Generated for Armen luis/Stefan/eTransmitting on:?10/23/2024 12:01 PM EST
--- OUTSIDE RECORDS SUMMARY | 2024-10-23 12:02 | XMS_ITS ---
Author Organization [facility] [employer] [facility] Address [address] [place] [address] Care Team Providers Care Engineering Technologist Name Role Phone Kavya Quintana Unavailable [phone] REASON FOR VISIT WANTS AMOXCLAV (?) Encounters Encounter Location Date Provider Diagnosis [facility] [employer] [facility] [address] [place] [address] 07/12/2024 Kavya Quintana Plan Of Treatment Next Appt Details Provider Name:Kavya castellon, 12/11/2024 09:00:00 AM, [address], [address], [place], [address], Progress Notes * VERENA SNYDEROB: [birth year] (69 yo F)Acc No.[id number]:07/12/2024 Patient:?LILLIAN LISA :1955???Age:69 Y???Sex:Female Address: [address], , [place], [address] * true * Date:? Generated for Printi janelle/Stefan/eTransmitting on:?10/23/2024 12:01 PM EST
--- OUTSIDE RECORDS SUMMARY | 2024-10-23 12:02 | XMS_ITS | Clinical Summary ---
Author Organization [facility] Address [address] [place] [address] Phone Care Team Providers Care Washtub Worker Name Role Phone Danielle Seo MD Primary Care Provider Encounters Date Type Department Care Team Description 08/07/2024 8:20 AM EST - 08/07/2024 11:59 PM EST Hospital [facility] [address] [address] Encounter for screening mammogram for breast cancer Discharge Disposition: Home or Self Care from Last 3 Months Surgical History Surgery Date Site/Laterality Comments STEREOTACTIC CORE BIOPSY Social History Tobacco Use Types Packs/Day Years Used Date Smoking Tobacco: Never Assessed Comments No Sex and Gender Information Value Date Recorded Sex Assigned at Not on file Legal Sex Female 3:14 AM EST Gender Identity Not on file Sexual Orientation Not on file Obstetrics History Para Term [...] Health Maintenance Due Date Last Done Comments DTaP,Tdap,and Td Vaccines (1 - Tdap) 1972 Pneumococcal Vaccine: 50+ Years (1 of 2 - PCV) 1972 Zoster Vaccines (1 of 2) 2003 RSV Immunization Patients 60+ Years Old (1 - Risk 60-74 years 1-dose series) 2013 Colorectal Cancer Screening: Colonoscopy 08/07/2022 Depression Screening 08/07/2022 Falls Risk Assessment 08/07/2022 Hepatitis C Screening 08/07/2022 Medicare Annual Wellness Visit 08/07/2022 Social Influencers of Health Screening 08/07/2022 COVID-19 Vaccine ( season) 2024 Influenza Vaccine (#1) 2024 Breast Cancer Screening 08/07/2026 08/07/20 24, 06/23/2023, 01/07/2022, Additional history exists Osteoporosis Screening [...] patient's age to complete this topic Meningococcal B Vacine Aged Out No lo nger eligible based on patient's age to complete [...] year. Mammo Location: [facility], [address] [place] [address], [address], . -------- FINAL REPORT -------- Dictated By: Erica Thompson Dictated Date: 08/07/2024 09:39 ET Assigned Physician: Erica Thompson Reviewed and Electronically Signed By: Erica Thompson Signed Date: 08/07/2024 09:42 ET Workstation ID: [id number] Transcribed By: Self Edit Transcribed Date: 08/07/2024 [...] year. Mammo Location: [facility], [address] [place] [address], [address], . -------- FINAL REPORT -------- Dictated By: Erica Thompson Dictated Date: 08/07/2024 09:39 ET Assigned Physician: Erica Thompson Reviewed and Electronically Signed By: Erica Thompson Signed Date: 08/07/2024 09:42 ET Workstation ID: [id number] Transcribed By: Self Edit Transcribed Date: 08/07/2024 09:39 ET us Self Referral Sppl IMG BI PROCEDURES Final Resul t * NICK DEXA AXIAL SKELETON (01/07/2022 3:04 PM EDT) Anatomical Region Laterality Modality Mammography 01/07/2022 1:36 PM EDT Narrative 01/07/2022 3:[address] [facility] Diagnostic Imaging Department [address] [place] [id number] Patient: ??LISA SNYDER ?/Age/Sex: 1955 - Unit#: ??[id number] ? Location/Status: ??SPDIMAM/REG CLI ? Mnemonic/Ordering Site: ??MAMDEXAAX/SPMAM Ordering Physician: ??KAVYA PETERS MD Nick Dexa Axial Skeleton - 01/07/22 1432 History: Low estrogen state due to menopause. Current smoker. Comparison: 02/10/17 Findings: Bone densitometry is performed utilizing dual energy x-ray absorptiometry (DXA) in the [employer] unit. The lumbar spine and proximal femora [...] 7.5 percent Hip 0.9 percent. IMPRESSION: Osteopenia. [id number] Dictating Physician: ??BRITTANIE ORTEGA MD Electronically Signed by: ??BRITTANIE ORTEGA MD Dic Date/Time: ??01/07/22 1503 Sign date/Time: ??01/07/22 1504 Procedure Note Brittanie Ortega MD - 08/24/2022 [facility] Diagnostic Imaging Department [address] [place] [address] Patient: LILLIANLISA F /Age/Sex: 1955 - 66 - F Unit#: [id number] Location/Status: SPDIMAM/REG CLI Mnemonic/Ordering Site: MAMDEXAAX/SPMAM Ordering Physician: KAVYA PETERS MD Nick Dexa Axial Skeleton - 01/07/22 - 1432 History: Low estrogen state due to menopause. Current smoker. Comparison: 02/10/17 Findings: Bone densitometry is performed utilizing dual energy x-ray absorptiometry(DXA) in the [employer] unit. The lumbar spine and proximal femora [...] Osteoporotic 7.5percent Hip 0.9 percent. IMPRESSION: Osteopenia. [id number] Dictating Physician: BRITTANIE ORTEGA MD Electronically Signed by: BRITTANIE ORTEGA MD Dic Date/Time: 01/07/22 1503 Sign date/Time: 01/07/22 1504 Kavya Peters MD IMG BI PROCEDURES Final Re sult from Last 3 Months or Most Recently Relevant to Health Maintenance Insurance MEDICARE [facility] Care Teams Washtub Worker Relationship Specialty Start Date End Date Danielle Seo MD [address] [place] [address] PCP - General Internal Medicine 07/31/24
== END 2024-10-23 12:39 | disposition home or self-care (01) ==
PROVIDERS: Visit Provider Neurological Surgery
DX: M48.062 Spinal stenosis, lumbar region with neurogenic claudication (principal)
CPT/HCPCS: 99214

== ENCOUNTER → 2024-10-23 11:19 | Outpatient (BNVA) | payer MEDICARE, SELFPAY | PROVIDERS: Visit Provider Neurological Surgery | DX: M48.062 Spinal stenosis, lumbar region with neurogenic claudication (principal) | CPT/HCPCS: 99212 ==

== ENCOUNTER 2024-11-01 08:31 | Outpatient (AMB) | payer MEDICARE, SELFPAY ==
--- OUTSIDE RECORDS SUMMARY | 2024-11-01 08:41 | XMS_ITS ---
Author Organization [facility] [employer] [facility] Address [address] [place] [address] Care Team Providers Care Computer Numeric Control Setter Name Role Phone Kavya Quintana Unavailable [phone] REASON FOR VISIT WANTS AMOXCLAV (?) Encounters Encounter Location Date Provider Diagnosis [facility] [facility] [address] [place] [address] 07/12/2024 Kavya Quintana Plan Of Treatment Next Appt Details Provider Name:Kavya castellon, 12/11/2024 09:00:00 AM, [address], [address], [place], [address], Progress Notes * VERENA SNYDEROB: [birth year] (69 yo F)Acc No.[id number]:07/12/2024 Patient:?LILLIAN LISA :1955???Age:69 Y???Sex:Female Address:[address], , [place], [address] * true * Date:? Generated for Printi janelle/Stefan/eTransmitting on:?11/01/2024 08:41 AM EST
--- OUTSIDE RECORDS SUMMARY | 2024-11-01 08:41 | XMS_ITS ---
Author Organization [facility] Address [address] [facility] [address] [place] [address] Care Team Providers Care Tea Taster Name Role Phone Kavya Quintana Unavailable [phone] REASON FOR VISIT RESULTS Encounters Encounter Location Date Provider Diagnosis [facility] [address] [facility] [address] [place] [address] 07/18/2024 Kavya Quintana Plan Of Treatment Next Appt Details Provider Name:Kavya castellon, 12/11/2024 09:00:00 AM, [address] [facility], [address], [place], [address], Progress Notes * VERENA SNYDEROB: [birth year] (69 yo F)Acc No.[id number]:07/18/2024 Patient:?JANELLE SNYDERLYN :1955???Age:69 Y???Sex:Female Address:[address], , [place], [address] * true * Date:? Generated for Armen luis/Stefan/eTransmitting on:?11/01/2024 08:41 AM EST
--- OUTSIDE RECORDS SUMMARY | 2024-11-01 08:41 | XMS_ITS | Clinical Summary ---
Author Organization [facility] Address [address] [place] [phone] Phone Care Team Providers Care Roll Dough Divider Name Role Phone Danielle Seo MD Primary Care Provider Encounters Date Type Department Care Team Description 08/07/2024 8:20 AM EST - 08/07/2024 11:59 PM EST Hospital [facility]counter [facility] [address] [address] Encounter for screening mammogram for [...] year. Mammo Location: [facility], [address] [place] [address], [address], . -------- FINAL REPORT -------- Dictated By: Erica Thompson Dictated Date: 08/07/2024 09:39 ET Assigned Physician: Erica Thompson Reviewed and Electronically Signed By: Erica Thompson Signed Date: 08/07/2024 09:42 ET Workstation ID: [id number] Transcribed By: Self Edit Transcribed Date: 08/07/2024 [...] year. Mammo Location: [facility], [address] [place] [address], [address], . -------- FINAL REPORT -------- Dictated By: Erica Thompson Dictated Date: 08/07/2024 09:39 ET Assigned Physician: Erica Thompson Reviewed and Electronically Signed By: Erica Thompson Signed Date: 08/07/2024 09:42 ET Workstation ID: [id number] Transcribed By: Self Edit Transcribed Date: 08/07/2024 09:39 ET us Self Referral Sppl IMG BI PROCEDURES Final Resul t * NICK DEXA AXIAL SKELETON (01/07/2022 3:04 PM EDT) Anatomical Region Laterality Modality Mammography 01/07/2022 1:36 PM EDT Narrative 01/07/2022 3:04 PM EDT [facility] Diagnostic Imaging Department [address] [place] [id number] Patient: ??LISA SNYDER ?/Age/Sex: 1955 - Unit#: ??[id number] ? Location/Status: ??SPDIMAM/REG CLI ? Mnemonic/Ordering Site: ??MAMDEXAAX/SPMAM Ordering Physician: ??KAVYA PETERS MD Nick Dexa Axial Skeleton - 01/07/22 1432 History: Low estrogen state due to menopause. Current smoker. Comparison: 02/10/17 Findings: Bone densitometry is performed utilizing dual energy x-ray absorptiometry (DXA) in the [employer] unit. The lumbar spine and proximal femora [...] 7.5 percent Hip 0.9 percent. IMPRESSION: Osteopenia. [id number] Dictating Physician: ??BRITTANIE ORTEGA MD Electronically Signed by: ??BRITTANIE ORTEGA MD Dic Date/Time: ??01/07/22 1503 Sign date/Time: ??01/07/22 1504 Procedure Note Brittanie Ortega MD - 08/24/2022 [facility] Diagnostic Imaging Department [address] [place] [address] Patient: LILLIANLISA F /Age/Sex: 1955 - 66 - F Unit#: [id number] Location/Status: SPDIMAM/REG CLI Mnemonic/Ordering Site: MAMDEXAAX/SPMAM Ordering Physician: KAVYA PETERS MD Nick Dexa Axial Skeleton - 01/07/22 - 1432 History: Low estrogen state due to menopause. Current smoker. Comparison: 02/10/17 Findings: Bone densitometry is performed utilizing dual energy x-ray absorptiometry(DXA) in the [employer] unit. The lumbar spine and proximal femora [...] Osteoporotic 7.5percent Hip 0.9 percent. IMPRESSION: Osteopenia. [id number] Dictating Physician: BRITTANIE ORTEGA MD Electronically Signed by: BRITTANIE ORTEGA MD Dic Date/Time: 01/07/22 1503 Sign date/Time: 01/07/22 1504 Kavya Peters MD IMG BI PROCEDURES Final Re sult from Last 3 Months or Most Recently Relevant to Health Maintenance Insurance MEDICARE [facility] Care Teams Roll Dough Divider Relationship Specialty Start Date End Date Danielle Seo MD [address] [place] [address] PCP - General Internal Medicine 07/31/24
--- OUTSIDE RECORDS SUMMARY | 2024-11-01 08:41 | XMS_ITS | Patient Health Record ---
Author Organization [facility] Address [address] [facility] [address] [place] [address] Care Team Providers Care Spooler Operator Automatic Name Role Phone Kavya Quintana Unavailable [phone] MOE SAGEA Unavailable [phone] Allergies Allergen (clinical drug ingredient) Drug/Non Drug Allergy documented on EMR Reaction Allergy Type Onset Date Status sulfamethoxazole / trimethoprim Bactrim DS Rash/Hives Drug Allergy Active Results Component Value Reference Range Notes PDF Report Reviewed date:02/13/2024 09:51:20 AM Interpretation: Performing Lab:[facility], [address] [place] [address], Phone - [phone], Director - MDRosina Notes/Report: Clinical Information:SRC: URINE Urine Culture, Routine-[id number] Reviewed date:02/13/2024 09:51:59 AM Interpretation: Performing Lab:[facility], [employer] [facility], Phone - [phone], Director - Vickiey Notes/Report: Clinical Information:SRC: URINE Clinical Information:SRC: URINE [...] S Tetracycline S Tobramycin S Trimethoprim/Sulfa S Urinalysis, Complete-[id number] Reviewed date:02/13/2024 09:52:22 AM Interpretation: Performing Lab:Arlen Ngo, [address] [facility], [place], Phone - [phone], Director - Shelton Notes/Report: Clinical Information:SRC: URINE Clinical Information:SRC: URINE Specific [place] 1.005 1.005-1.030 pH 7.0 5.0-7.5 Urine-Color Yellow [...] None seen /lpf Bacteria Many None seen/Few Urinalysis Reviewed date:02/09/2024 09:58:07 AM Interpretation: Performing Lab: Notes/Report: NITRITE NEG PH 5.0 PROTEIN NEG S.G 1.005 WBC POS GLUCOSE NEG KETONES NEG UROBILINOGEN NEG BILIRUBIN NEG BLOOD LG PDF Report Reviewed date:01/19/2024 10:19:31 AM Interpretation: Performing Lab:Pamela Horowitz, [facility] [employer], [place], Phone - [phone], Director - [facility] Notes/Report: Urine Culture, Routine-[id number] 7 Reviewed date:01/19/2024 09:42:48 AM Interpretation: Performing Lab:Pamela Horowitz, [facility] [employer], [place], Phone - [phone], Director - [facility] Notes/Report: Urine Culture, Routine Final report [...] S Tetracycline S Tobramycin S Trimethoprim/Sulfa S Urinalysis Reviewed date:01/15/2024 02:22:37 PM Interpretation: Performing Lab: Notes/Report: NITRITE NEG PH 5.0 PROTEIN NEG S.G 1.000 WBC NEG GLUCOSE NEG KETONES NEG UROBILINOGEN NEG BILIRUBIN NEG BLOOD LARGE PDF Report Reviewed date:02/20/2024 05:33:15 PM Interpretation: Performing Lab:Arlen Wick, [address], [address], [place], Phone - [phone], Director - [facility] Notes/Report: Clinical Information:SRC: Urine Culture, Routine-[id number] 7 Reviewed date:02/20/2024 05:32:28 PM Interpretation: Performing Lab:Arlen Wick, [address], [employer], [place], Phone - [phone], Director - [facility] Notes/Report: Clinical Information:SRC: Clinical Information:SRC: Urine Culture, Routine Final report Result 1 Culture shows less than 10,000 colony forming units of bacteria per milliliter of urine. This colony count is not generally considered to be clinically significant. Reason For Referral No Information Medications Medication [...] C 500MG 1 ORAL daily for -3 [facility] [place]- 08/03/2011 Active Aloe Vera 25 MG Orally [...] Status Risk Notes Problem Postmenopausal atrophic vaginitis (47725166) Postmenopausal atrophic vaginitis (N95.2) Active confirmed Problem Occlusion of cerebral artery (disorder) (95916799) Unspecified cerebral artery occlusion without mention of cerebral infarction (434.90) Active confirmed Major Problem Menopausal symptom (71145044) Symptomatic menopausal or female climacteric states (627.2) Active confirmed Major Problem Ventricular septal defect (66419675) Ventricular septal defect (745.4) Active confirmed Major Problem Gynecological examination normal (298909659528424) Routine gynecological examination (V72.31) Active confirmed Major Problem Screening for malignant neoplasm of colon (064233488) Special screening for malignant neoplasms, colon (V76.51) Active confirmed Major Vital Signs Temperature 98.1 degrees Fahrenheit 07/10/2024 Blood pressure diastolic 76 mm Hg 07/10/2024 Height 65.8 in 07/10/2024 Blood pressure systolic 128 mm Hg 07/10/2024 Weight 140 lbs 07/10/2024 BMI 22.73 kg/m2 07/10/2024 Encounters Encounter Location Date Provider Diagnosis [address] [place] [address] 12/01/2023 Kavya Quintana Encounter for screen ing mammogram for malignant neoplasm of breast Z12.31 ; Encounter for gynecological examination (general) (routine) with abnormal findings Z01.411 and Postmenopausal atrophic vaginitis N95.[address] [address] 01/15/2024 CHAD SAGE Dysuria R30.0 and Frequency of micturition R35.[address] [address] 02/09/2024 Kavya Quintana Urinary tract infection, site not specified N39.0 and Postmenopausal atrophic vaginitis N95.[address] [address] 07/10/2024 Kavya Quintana Other specified noninflammatory disorders of vulva and perineum N90.[address] [address] 01/15/2024 Kavya Quintana Abscess of vulva N76 .[address] [address] 01/18/2024 Kavya Quintana Total [address] [address] 02/23/2024 Kavya Quintana Total [address] [address] 07/10/2024 Kavya Quintana Total [address] [address] 07/12/2024 Kavya Quintana Total [address] [address] 07/18/2024 Kavya Quintana Total [address] [address] 07/18/2024 Kavya Quintana Assessments Encounter Date Diagnosis [...] CORE BX 3 Next Appt Details Provider Name:Kavya Moses castellon, 12/11/2024 09:00:00 AM, [address] [facility], [address], [place], [address], Insurance Providers Payer Name Payer Address Payer Phone Subscriber Number Group Number Insured Name Patient Relationship to Insured Coverage Start Date Coverage End Date MEDICARE [address] [facility] [place], [place] [id number] LISA SNYDER Self - patient is the insured MEDEX [address] [place] [address] [id number] LISA SNYDER Self - patient is [...] of vulva N76.4 Surgical History Surgery Date(Month/Year) [place] Teeth Gum Graft Colonoscopy Hospitalization History Reason Date(Month/Year) S/P Stroke 1997 1 Vaginal Delivery
--- OUTSIDE RECORDS SUMMARY | 2024-11-01 08:41 | XMS_ITS ---
Author Organization [facility] Address [address] [address] Care Team Providers Care Color Shop Helper Name Role Phone QuintanaFelicitasbakari Diaz [phone] Medications Medication SIG (Take, Route, Frequency, Duration) Notes Start Date End Date Status Estradiol Vaginal Cream 0.01% 1 Gram to the affected area Vaginal/Vulva Twice a week for 90 Days 07/18/2024 Active Encounters Encounter Location Date Provider Diagnosis [facility] [address] 07/18/2024 Kavya Quintana Plan Of Treatment Medication Medication Name Sig Start Date Stop Date Notes Estradiol Vaginal Cream 0.01% 1 Gram to the affected area Vaginal/Vulva Twice a week for 90 Days 07/18/2024 Next Appt Details Provider Name:Kavya castellon, 12/11/2024 09:00:00 AM, [address] [place] [address], [address], [place], [address], Progress Notes * VERENA SNYDEROB: [birth year] (69 yo F)Acc No.[id number]:07/18/2024 Patient:?JANELLE SNYDERLYN :1955???Age:69 Y???Sex:Female Address: [address], , [place], [address] * Refills? Start Estradiol Vaginal Cream Cream, 0.01%, Vaginal/Vulva, 42.5 Gram, 1 Gram to the affected area, Twice a week, 90 Days, Refills=4 * true * Date:? Generated for Printi ng/Stefan/Génesis on:?11/01/2024 08:41 AM EST
--- NOTE | 2024-11-01 08:42 | HO.SPINEOV ---
Vital Signs 11/01/24 08:50 Height 5 ft 5 in Weight 140 lb BMI 23.3 Intake Visit Reasons: discuss sx Intake Note: Ms. Low is here today to Discuss Surg. Quality Assurance Required: No Allergies Sulfa (Sulfonamide Antibiotics) Allergy (Mild, Verified 11/01/24 08:50) Rash Physical Exam Vital Signs: BMI result Body Mass Index 23.3 Assessment & Plan Assessment & Plan (1) Lumbar stenosis with neurogenic claudication: Code(s): M48.062 - Spinal stenosis, lumbar region with neurogenic claudication Category: Medical Plan Dear colleague, On 11/01/2024, I saw for a visit Maureen Low to answer additional questions about her back pain in relation to MRI findings and questions about the proposed L4-5 lumbar decompression. I explained to the patient that clinical symptoms determine medical intervention and not radiological findings per se. We discussed again the L4-5 decompression to relieve the central spinal stenosis and removal of the disc herniation. She wants to proceed and is scheduled for 12/05/2024. She will obtain preoperative clearance from her primary care physician. She will stop aspirin 5 days prior. I spent 20 minutes in his consult answering questions. Mikhail Pandya MD, PhD Spine Fellowship Trained Neurosurgeon Director, [facility] Coding Level of Care Code Est Pt Level 3 (90117) Diagnoses Lumbar stenosis with neurogenic claudication M48.062
[2024-11-01 08:50] VITALS: BMI 23.3
== END 2024-11-01 09:47 | disposition home or self-care (01) ==
PROVIDERS: Visit Provider Neurological Surgery
DX: M48.062 Spinal stenosis, lumbar region with neurogenic claudication (principal)
CPT/HCPCS: 99213

== ENCOUNTER → 2024-11-01 08:31 | Outpatient (BNVA) | payer MEDICARE, SELFPAY | PROVIDERS: Visit Provider Neurological Surgery | DX: M48.062 Spinal stenosis, lumbar region with neurogenic claudication (principal) | CPT/HCPCS: 99212 ==

== ENCOUNTER 2024-12-17 06:48 | Day surgery (SDC) | payer MEDICARE, SELFPAY ==
--- OUTSIDE RECORDS SUMMARY | 2024-11-08 14:08 | XMS_ITS | Patient Health Record ---
Author Organization [facility] Address [address] [facility] [address] [place] [address] Care Team Providers Care 3D Technologist Name Role Phone Kavya Quintana Unavailable [phone] MOE SAGEA Unavailable [phone] Allergies Allergen (clinical drug ingredient) Drug/Non Drug Allergy documented on EMR Reaction Allergy Type Onset Date Status sulfamethoxazole / trimethoprim Bactrim DS Rash/Hives Drug Allergy Active nitrofurantoin Macrodantin SOB/Feels Ill Drug Allergy Active Results Component Value Reference Range Notes PDF Report Reviewed date:02/20/2024 05:33:15 PM Interpretation: Performing Lab:[facility] [place], [address], [address], [employer], Phone - [phone], Director - [place]ail[place] Notes/Report: Clinical Information:SRC:UC Urine Culture, Routine-[id number] 7 Reviewed date:02/20/2024 05:32:28 PM Interpretation: Performing Lab:[facility] [place], [address], [address], [place], Phone - [phone], Director - Laila Notes/Report: Clinical Information:SRC:UC Clinical Information:SRC:UC Urine Culture, Routine Final report Result 1 Culture shows less than 10,000 colony forming units of bacteria per milliliter of urine. This colony count is not generally considered to be clinically significant. PDF Report Reviewed date:02/13/2024 09:51:20 AM Interpretation: Performing Lab:[facility] [place], [address] [facility], [place], Phone - [phone], Director - [place] Notes/Report: Clinical Information:SRC: URINE Urine Culture, Routine-[id number] 7 Reviewed date:02/13/2024 09:51:59 AM Interpretation: Performing Lab:[facility], [address] [place] [address], Phone - [phone], Director - [place] Notes/Report: Clinical Information:SRC: URINE [...] Tetracycline S Tobramycin S Trimethoprim/Sulfa S Urinalysis, Complete-[id number] Reviewed date:02/13/2024 09:52:22 AM Interpretation: Performing Lab:[facility] [place], [address] [place] [address], [place], Phone - [phone], Director - [place] Notes/Report: Clinical Information:SRC: URINE Clinical Information:SRC: URINE Specific [place] 1.005 1.005-1.030 pH 7.0 5.0-7.5 Urine-Color Yellow [...] Reviewed date:01/19/2024 10:19:31 AM Interpretation: Performing Lab:[facility] [place], [address], [address], [place], Phone - [phone], Director - [facility] Notes/Report: Urine Culture, Routine-[id number] 7 Reviewed date:01/19/2024 09:42:48 AM Interpretation: Performing Lab:[facility] [place], [address], [address], [place], Phone - [phone], Director - [facility] Notes/Report: Urine Culture, Routine Final report Result [...] NEG UROBILINOGEN NEG BILIRUBIN NEG BLOOD LARGE Reason For Referral No Information Medications Medication [...] C 500MG 1 ORAL daily for -3 [facility] [place] 08/03/2011 Active Aloe Vera 25 MG Orally unknown dose A ctive valACYclovir HCl 500 MG 2 TABS Orally TW ICE DAILY FOR 10 DAYS THEN 1 TAB DAILY FOR 90 DAYS. for 90 days 07/10/2024 Active Cephalexin 500 MG 1 capsule Orally AFT ER INTERCOURSE for 90 days 11/04/2024 Active Vitamin D3 1000 IU 1 ORAL [...] Status Risk Notes Problem Postmenopausal atrophic vaginitis (16790772) Postmenopausal atrophic vaginitis (N95.2) Active confirmed Problem Occlusion of cerebral artery (disorder) (17429721) Unspecified cerebral artery occlusion without mention of cerebral infarction (434.90) Active confirmed Major Problem Menopausal symptom (99682438) Symptomatic menopausal or female climacteric states (627.2) Active confirmed Major Problem Ventricular septal defect (02480839) Ventricular septal defect (745.4) Active confirmed Major Problem Gynecological examination normal (691862894662836) Routine gynecological examination (V72.31) Active confirmed Major Problem Screening for malignant neoplasm of colon (516627735) Special screening for malignant neoplasms, colon (V76.51) Active confirmed Major Vital Signs Temperature 98.1 degrees Fahrenheit 07/10/2024 Blood pressure diastolic 76 mm Hg 07/10/2024 Height 65.8 in 07/10/2024 Blood pressure systolic 128 mm Hg 07/10/2024 Weight 140 lbs 07/10/2024 BMI 22.73 kg/m2 07/10/2024 Encounters Encounter Location Date Provider Diagnosis [facility] [address] [place] [employer] [address] [address] 12/01/2023 Kavya Quintana Encounter for screen ing mammogram for malignant neoplasm of breast Z12.31 ; Encounter for gynecological examination (general) (routine) with abnormal findings Z01.411 and Postmenopausal atrophic vaginitis N95.2 [facility] [address] [address] 01/15/2024 CHAD SAGE Dysuria R30.0 and Frequency of micturition R35.0 [facility] [address] [address] 02/09/2024 Kavyabakari Quintana Urinary tract infection, site not specified N39.0 and Postmenopausal atrophic vaginitis N95.2 [facility] [address] [address] 07/10/2024 Kavyabakari Quintana Other specified noninflammatory disorders of vulva and perineum N90.89 [facility] [address] [address] 01/15/2024 Kavyabakari Quintana Abscess of vulva N76 .4 [facility] [address] [address] 01/18/2024 Kavyabakari WolfQuintana Total [address] [address] 02/23/2024 Kavya Quintana [facility] [address] [address] 07/10/2024 Kavya Quintana [facility] [address] [address] 07/12/2024 Kavya Quintana [facility] [address] [address] 07/18/2024 Kavya Quintana Total [address] [address] 07/18/2024 Kavya Quintana Total [address] [place] [address] 11/04/2024 Kavya Quintana Assessments Encounter Date Diagnosis (ICD [...] Name:Kavya Moses castellon, 12/11/2024 09:00:00 AM, [address] [facility], [address], [place], [address], Insurance Providers Payer Name Payer Address Payer Phone Subscriber Number Group Number Insured Name Patient Relationship to Insured Coverage Start Date Coverage End Date MEDICARE [address] [facility] [place] [id number] LISA SNYDER Self - patient is the insured MEDEX [address] [place] [address] [id number] LISA SNYDER Self - patient is [...] of vulva N76.4 Surgical History Surgery Date(Month/Year) [place] Teeth Gum Graft Colonoscopy Hospitalization History Reason Date(Month/Year) S/P Stroke 1997 1 Vaginal Delivery
--- OUTSIDE RECORDS SUMMARY | 2024-11-08 14:08 | XMS_ITS ---
Author Organization [facility] Address [address] [address] Care Team Providers Care Nuclear Criticality Safety Engineer Name Role Phone Kavya Quintana [phone] Allergies Allergen (clinical drug ingredient) Drug/Non Drug Allergy documented on EMR Reaction Allergy Type Onset Date Status sulfamethoxazole / trimethoprim Bactrim DS Rash/Hives Drug Allergy Active nitrofurantoin Macrodantin SOB/Feels Ill Drug Allergy Active REASON FOR VISIT RX FOR AFTER INTERCOURSE ? Medications Medication SIG (Take, Route, Fr equency, Duration) Notes Start Date End Date Status Cephalexin 500 MG 1 capsule Orally AFT ER INTERCOURSE for 90 days 11/04/2024 Active Encounters Encounter Location Date Provider Diagnosis [facility] [email or web address] [address] [address] 11/04/2024 Kavya Quintana Plan Of Treatment Medication Medication Name Sig Start Date Stop Date Notes Cephalexin 500 MG 1 capsule Orally AFT ER INTERCOURSE for 90 days 11/04/2024 Next Appt Details Provider Name:Kavya castellon, 12/11/2024 09:00:00 AM, [address] [place] [address], [facility] [address], [place], [address], Progress Notes * VERENA SNYDEROB: [birth year] (69 yo F)Acc No.[id number]:11/04/2024 Patient:?JANELLE SNYDERLYN :1955???Age:69 Y???Sex:Female Address: [address], , [place], [address] * Refills? Start Cephalexin Capsule, 500 MG, Orally, 24, 1 capsule, AFTER INTERCOURSE, 90 days, Refills=3 Subjective: * Chief Complaints: * ???RX FOR AFTER INTERCOURSE ? * Medical History:? * Surgical History:? * Hospitalization/Major Diagno stic Procedure:? * Medications:? * Allergies:?Bactrim DS: Rash/ Hives - AllergyMacrodantin: SOB/Feels Ill - Allergy Objective: * Vitals:? * Physical Examination:? Assessment: Plan: * Treatment: * Procedure Codes:? * true * Date:? Generated for Armen luis/Stefan/Zacksmitting on:?11/08/2024 02:08 PM EST
--- OUTSIDE RECORDS SUMMARY | 2024-11-08 14:08 | XMS_ITS | Clinical Summary ---
Author Organization [facility] Address [address] [place] [phone] Phone Care Team Providers Care Car Repairer Helper Name Role Phone Danielle Seo MD Primary Care Provider Surgical History Surgery Date Site/Laterality Comments STEREOTACTIC [...] year. Mammo Location: [facility], [address] [place] [address], [id number], . -------- FINAL REPORT -------- Dictated By: Erica Thompson Dictated Date: 08/07/2024 09:39 ET Assigned Physician: Erica Thompson Reviewed and Electronically Signed By: Erica Thompson Signed Date: 08/07/2024 09:42 ET Workstation ID: [id number] Transcribed By: Self Edit Transcribed Date: 08/07/2024 [...] year. Mammo Location: [facility], [address] [place] [id number], [id number], . -------- FINAL REPORT -------- Dictated By: Erica Thompson Dictated Date: 08/07/2024 09:39 ET Assigned Physician: Erica Thompson Reviewed and Electronically Signed By: Erica Thompson Signed Date: 08/07/2024 09:42 ET Workstation ID: [id number] Transcribed By: Self Edit Transcribed Date: 08/07/2024 09:39 ET us Self Referral Sppl IMG BI PROCEDURES Final Resul t * NICK DEXA AXIAL SKELETON (01/07/2022 3:04 PM EDT) Anatomical Region Laterality Modality Mammography 01/07/2022 1:36 PM EDT Narrative 01/07/2022 3:04 PM EDT [facility] Diagnostic Imaging Department [address] [place] [id number] Patient: ??LISA SNYDER ?/Age/Sex: 1955 - 66 - F Unit#: ??[id number] ? Location/Status: ??SPDIMAM/REG CLI ? Mnemonic/Ordering Site: ??MAMDEXAAX/SPMAM Ordering Physician: ??KAVYA PETERS MD Nick Dexa Axial Skeleton - 01/07/222 History: Low estrogen state due to menopause. Current smoker. Comparison: 02/10/17 Findings: Bone densitometry is performed utilizing dual energy x-ray absorptiometry (DXA) in the Provident Link[employer] Delta unit. The lumbar spine and proximal femora [...] 7.5 percent Hip 0.9 percent. IMPRESSION: Osteopenia. [id number] Dictating Physician: ??BRITTANIE ORTEGA MD Electronically Signed by: ??BRITTANIE ORTEGA MD Dic Date/Time: ??01/07/22 1503 Sign date/Time: ??01/07/22 1504 Procedure Note Brittanie Ortega MD - 08/24/2022 [facility] Diagnostic Imaging Department [address] [place] [address] Patient: LISA SNYDER /Age/Sex: 1955 66 - F Unit#: [id number] Location/Status: [facility]REG CLI [facility] Ordering Physician: KAVYA PETERS MD Nick Dexa Axial Skeleton - 01/07/22 - 1432 History: Low estrogen state due to menopause. Current smoker. Comparison: 02/10/17 Findings: Bone densitometry is performed utilizing dual energy x-ray absorptiometry(DXA) in the [employer]arch unit. The lumbar spine and proximal femora [...] Osteoporotic 7.5percent Hip 0.9 percent. IMPRESSION: Osteopenia. [id number] Dictating Physician: BRITTANIE ORTEGA MD Electronically Signed by: BRITTANIE ORTEGA MD Dic Date/Time: 01/07/22 1503 Sign date/Time: 01/07/22 1504 Kavya Peters MD IMG BI PROCEDURES Final Re sult from Last 3 Months or Most Recently Relevant to Health Maintenance Insurance MEDICARE [facility] Care Teams Car Repairer Helper Relationship Specialty Start Date End Date Danielle Seo MD [address] [place] [address] PCP - General Internal Medicine 07/31/24
--- OUTSIDE RECORDS SUMMARY | 2024-11-08 14:08 | XMS_ITS ---
Author Organization [facility] Address [address] [address] Care Team Providers Care Personnel Clerk Name Role Phone QuintanaFelicitasbakari Diaz [phone] Medications Medication SIG (Take, Route, Frequency, Duration) Notes Start Date End Date Status Estradiol Vaginal Cream 0.01% 1 Gram to the affected area Vaginal/Vulva Twice a week for 90 Days 07/18/2024 Active Encounters Encounter Location Date Provider Diagnosis [facility] [address] [address] 07/18/2024 Kavya Quintana Plan Of Treatment Medication Medication Name Sig Start Date Stop Date Notes Estradiol Vaginal Cream 0.01% 1 Gram to the affected area Vaginal/Vulva Twice a week for 90 Days 07/18/2024 Next Appt Details Provider Name:Kavya castellon, 12/11/2024 09:00:00 AM, [address] [place] [address], [address], [place], [address], Progress Notes * VERENA SNYDEROB: [birth year] (69 yo F)Acc No.[id number]:07/18/2024 Patient:?JANELLE SNYDERLYN :1955???Age:69 Y???Sex:Female Address: [address], , [place], [address] * Refills? Start Estradiol Vaginal Cream Cream, 0.01%, Vaginal/Vulva, 42.5 Gram, 1 Gram to the affected area, Twice a week, 90 Days, Refills=4 * true * Date:? Generated for Printi ng/Stefan/Génesis on:?11/08/2024 02:07 PM EST
--- OUTSIDE RECORDS SUMMARY | 2024-11-08 14:08 | XMS_ITS ---
Author Organization [facility] Address [address] [place] [address] Care Team Providers Care Baton Twirler Name Role Phone Kavya Quintana Unavailable [phone] REASON FOR VISIT RESULTS Encounters Encounter Location Date Provider Diagnosis [facility] [address] [place] [address] 07/18/2024 Kavya Quintana Plan Of Treatment Next Appt Details Provider Name:Kavya castellon, 12/11/2024 09:00:00 AM, [address], [address], [place], [address], Progress Notes * VERENA SNYDEROB: [birth year] (69 yo F)Acc No.[id number]:07/18/2024 Patient:?JANELLE SNYDERLYN :1955???Age:69 Y???Sex:Female Address:[address], , [place], [address] * true * Date:? Generated for Armen luis/Stefan/eTransmitting on:?11/08/2024 02:08 PM EST
[2024-11-22 09:05] VITALS: BMI 23.5
[2024-12-17] VITALS (8 sets, daily range): BP systolic 102–142; BP diastolic 49–72; PULSE 72–81; RESP 16–20; TEMP 36.1–37.1; O2SAT 94–99; BMI 23.9
--- NOTE | ~2024-12-17 | FL_ITS ---
EXAMINATION: FL GUIDANCE ONLY HISTORY: L4-5 Decompression COMPARISON: Correlation is made with plain films of the lumbar spine dated 10/09/2024. TECHNIQUE: Fluoroscopy time: 4 seconds. Cumulative Dose: 3.57 mGy. DAP: 1.3119 mGym2 Images: 1. FINDINGS: A single fluoroscopic spot film of the lumbar spine in the lateral projection demonstrates a probe directed toward the L4-5 intervertebral disc space from a posterior approach. FL/FL guidance in OR IMPRESSION: Fluoroscopy during procedure. Please see procedure report for additional information. Electronically signed by: Denny Shah MD 12/17/2024 11:30 AM EDT
--- NOTE | 2024-12-17 07:08 | MHC.SHP ---
Pre-Procedural Eval Section A - 24 Hr Update-Section A only Date of Service: 12/17/24 The patient is an INPATIENT: No Changes since office visit: No Cold of Flu in the past 2 weeks, No New Medical Problems, No Changes in Medication and No Patient answered all questions The patient has been examined within 24 hours of the surgical procedure. The History & Physical has been completed within 30 days and I have reviewed it.: No Section B - Complete if H&P > 30 days Chief Complaint: Spinal stenosis, lumbar region with neurogenic Allergies: Allergies Allergy/AdvReac Type Severity Reaction Status Date / Time bee pollen [bee stings] Allergy Intermediate localized Verified 11/22/24 09:01 swelling Sulfa (Sulfonamide Allergy Mild Rash Verified 11/01/24 08:50 Antibiotics) Review of Systems Sugical H&P ROS: Negative: Constitution, Cardiovascular, Respiratory, Neurological, Psychiatric, Hem-Onc, Allergic/Immunologic, Gastrointestinal, Genitourinary, Musculoskeletal, Integumentary, Endocrine and Eyes/Ears/Nose/Throat Exam Surgical H&P Exam: Normal: HEENT, Normal: Heart, Normal: Lungs, Normal: Extremities, Normal: Abdomen, Normal: Skin and Normal: Neurological (awake, alert,oriented x 3 ) Plan Diagnosis/Plan: Unchanged left L4-5 decompression/diskectomy for bilat decompression Time Spent With Patient Time: Total time managing care of this patient today _6___ minutes.
[2024-12-17] MEDS: methocarbamoL 750 MG TABLET PO (07:23)
[2024-12-17] MEDS: Lactated Ringers 1,000 ML 100 ML IVCONT (07:23)
[2024-12-17] MEDS: Gabapentin 300 MG CAPSULE PO (07:23)
--- NOTE | 2024-12-17 09:26 | PM.DS ---
DS: Providers Provider Date of Service: 12/17/24 Date of discharge: 12/17/24 Primary care physician: Danielle Seo MD Admitting clinician: Mikhail Pandya DS: Diagnosis Discharge Diagnosis (1) Lumbar stenosis with neurogenic claudication: Status: Acute DS: Summary Time Attestation Discharge Coordination Time (in mins): 5 Quality: Safe Use of Opioids Does Pt have an Active Cancer Diagnosis on the Problem List?: No Quality: Stroke Does the patient have a stroke diagnosis?: No Physical Exam Vital Signs: Vital Signs: Last Vital Signs Temp 98.7 F 12/17/24 07:14 Pulse 81 12/17/24 07:14 Resp 16 12/17/24 07:14 BP 142/72 H 12/17/24 07:14 Pulse Ox 95 12/17/24 07:14 O2 Del Method Room Air 12/17/24 07:14 BMI result Body Mass Index 23.9 Discharge Plan Discharge Patient Disposition: Home, Self-Care Referrals: Danielle Seo MD [Primary Care Provider] - 1 Week Discharge Medications: New oxycodone 5 mg tablet 5 mg PO Q4H PRN (Reason: pain) Qty: 20 0RF Rx Instructions: Partial Fill upon patient request. docusate sodium [Colace] 100 mg capsule 100 mg PO BID Qty: 20 0RF Continued zinc acetate 25 mg (zinc) Capsule 25 mg PO 3XW acetaminophen [Acetaminophen Extra Strength] 500 mg Tablet 500 mg PO Q8H PRN (Reason: Pain) epinephrine [EpiPen 2-Mike] 0.3 mg/0.3 mL Auto-Injector 0.3 mg IM Q10M PRN (Reason: Anaphylaxis) Rx Instructions: for 2 doses cholecalciferol (vitamin D3) [Vitamin D3] 25 mcg (1,000 unit) Capsule 25 mcg PO DAILY ascorbic acid (vitamin C) [Vitamin C] 1,000 mg Tablet 1 g PO BID Held aspirin 81 mg Tablet,Delayed Release (Dr/Ec) 81 mg PO DAILY Hold Instructions: Resume on 12/22/24. you can resume 5 days after surgery Discharge Orders: Discharge Order (Routine); Ordered 12/17/24 Ordered By: Isaac Brar Diet: Advance to usual diet Activity on Discharge: As tolerated Activity Restrictions/Additional Instructions: After your spinal surgery we ask you to observe the following restrictions/guidelines: Activity: It is normal to feel some discomfort as you increase your activity, but that will improve with time. We ask you avoid heavy lifting or acitivities that cause pain. As a general rule, 8lbs is a safe limit for lifting right after surgery. Walk as much as you feel comfortable but not to exhaustion. You will feel extra tired the first few days after surgery. Stay well hydrated. It is OK to walk up and down stairs You may return to driving when you are off narcotics (such as vicodin, oxycodone, dilaudid, etc), and you are back to normal functional capacity. If you have any concerns please check with office before driving. Return to work is specific to each patient and each surgery, so please speak with your doctor/PA at first follow up. Please bring paperwork such as FMLA at that time if you need it filled out. Medications: You can resume aspirin 5 days after surgery For optimum pain control, it is best to start with a combination of 500 mg of Tylenol every 4 hours with 600 mg of Motrin every 8 hours, and use narcotics as needed in between for breakthrough pain. We will give you a short supply of narcotics after surgery (usually one weeks worth). If you need more please call the office but do not use more than prescribed. You will need to give our office 48 hours notice if you need narcotics refilled and we do not fill narcotics on weekends or evenings. If you are on a narcotic, it is a good idea to take a stool softener such as colace or senna to avoid constipation If you take blood thinner such as aspirin, Plavix, Coumadin, Effient, Eliquis etc for conditions such as Afib, DVT, Pulmonary embolus, coronary disease, stents etc please speak with your surgeon about specific details as to when you can resume these medications. You can resume NSAIDs on post op day 1 (eg: Motrin, Naproxen, etc). Follow up: Please call the office, , after surgery to arrange a 3 week follow up for wound check. Wound Care: You may remove your dressing on the first day after surgery. ?You may ?leave open to air. Please do not remove the steri strips underneath. they will fall off on their own in one week. IT IS NORMAL FOR THE WOUND TO OOZE OR BE BLOODY FOR A FEW DAYS AFTER SURGERY. ?IF THIS HAPPENS JUST PLACE NEW DRESSING OVER IT TO AVOID STAINING CLOTHES. You may shower on post op day # 1 We ask that you do not let the water soak the wound. If it does get wet, just towel dry lightly. Please do not scrub your incision or place any type of chemical/ointment on the wound. No tub baths, pools or jacuzzis for one month. If you have any leaking or redness from your wound, or fevers, please call office Print Language: Slovenian
--- NOTE | 2024-12-17 09:49 | P.CONAN_ITS ---
Documented by User: [email or web address] Colvin NP 12/06/24 13:34 HPI - Anesthesia Eval Consult details Narrative: 69yo F for L4-5 Lumbar Decompression, 12/17/24 Medically optimized per [facility] Hx PFO - follows PCP only now [facility] Active Problems Active Problems: All Active Problems Lumbar stenosis with neurogenic claudication (Acute) Scoliosis of lumbar region due to degenerative disease of spine in adult (Acute) Past Medical History Medical History (Updated 11/22/24 @ 09:05 by Jennifer Lee RN) History of Mohs micrographic surgery for skin cancer PFO (patent foramen ovale) Lumbar radiculopathy TIA (transient ischemic attack) COPD (chronic obstructive pulmonary disease) Basal cell carcinoma Back pain Surgical History Surgical History (Updated 11/22/24 @ 09:05 by Jennifer Lee RN) H/O colonoscopy Hx of biopsy Hx of breast biopsy Hx of oral surgery Social History Social History Are you a primary resident care provider to a significant other at home: No Do you presently have visiting nurse or other home services: No Patient Tobacco Use Status: Current everyday Tobacco user Tobacco use type: Cigarette Cigarettes Per Day: 5 Years Smoked: 50 Use of substances other than those prescribed or required for medical reasons: No Have you been hit, kicked, punched, or otherwise hurt by someone within the past year? If so, by whom?: No Spiritual Healthcare Practices: none Gnosticism Healthcare Practices: Orthodoxy Cultural Healthcare Practices: none Are you DNR?: No Advance Directives: No Advance Directives Information Provided: Yes (will bring copy DOS) Advance Directives on File: No Recently lost weight without trying: No Eating poorly because of decreased appetite: No Nutrition Risks: No Nutritional Risk FDLMP: n/a Poor oral hygiene: No Meds Allergies Allergy/AdvReac Type Severity Reaction Status Date / Time bee pollen [bee stings] Allergy Intermediate localized Verified 11/22/24 09:01 swelling Sulfa (Sulfonamide Allergy Mild Rash Verified 11/01/24 08:50 Antibiotics) Home Medications ?Medication ?Instructions ?Recorded ?Confirmed ?Last Taken ?Type acetaminophen 500 mg tablet 500 mg PO Q8H PRN Pain 11/21/24 11/21/24 12/16/24 History (Acetaminophen Extra Strength) aspirin 81 mg tablet,delayed 81 mg PO DAILY 11/21/24 11/21/24 12/16/24 History release cholecalciferol (vitamin D3) 25 25 mcg PO DAILY 11/21/24 11/21/24 12/16/24 History mcg (1,000 unit) capsule (Vitamin D3) epinephrine 0.3 mg/0.3 mL 0.3 mg IM Q10M PRN Anaphylaxis 11/21/24 11/21/24 Unknown History injection, auto-injector (EpiPen 2-Mike) zinc acetate 25 mg (zinc) capsule 25 mg PO 3XW 11/21/24 11/22/24 12/16/24 History ascorbic acid (vitamin C) 1,000 mg 1 g PO BID 11/22/24 11/22/24 12/16/24 History tablet (Vitamin C) Exam Height,Weight and Vital Signs: Height 5 ft 4.96 in Weight 64 kg Pertinent Lab Results Pertinent Lab Results: CBC 11/2024 at [facility]. H&H slightly elevated Narrative Narrative: EKG 2023 Ventricular Rate: 77 BPM Atrial Rate: 77 BPM P-R Interval: 152 ms QRS Duration: 82 ms Q-T Interval: 366 ms QTC Calculation(Bazett): 414 ms P Covel: 76 degrees R Covel: 16 degrees T Covel: 72 degrees Normal sinus rhythm Normal ECG No previous ECGs available Confirmed by SHERIDAN VICTOR ([id number]) on 03/12/2024 8:28:23 AM Assessment and Plan Assessment Anesthesia Assessment: Chart Reviewed Documented by User: Nurys Ge DO 12/17/24 09:50 [facility] Past Medical History Medical History (Updated 11/22/24 @ 09:05 by Jennifer Lee RN) History of Mohs micrographic surgery for skin cancer PFO (patent foramen ovale) Lumbar radiculopathy TIA (transient ischemic attack) COPD (chronic obstructive pulmonary disease) Basal cell carcinoma Back pain Family History Family history of problems with anesthesia: No Surgical History Surgical History (Updated 11/22/24 @ 09:05 by Jennifer Lee, SUNI) H/O colonoscopy Hx of biopsy Hx of breast biopsy Hx of oral surgery History of Problems with Anesthesia: No Social History Social History Are you a primary resident care provider to a significant other at home: No Do you presently have visiting nurse or other home services: No Patient Tobacco Use Status: Current everyday Tobacco user Tobacco use type: Cigarette Cigarettes Per Day: 5 Years Smoked: 50 Use of substances other than those prescribed or required for medical reasons: No Have you been hit, kicked, punched, or otherwise hurt by someone within the past year? If so, by whom?: No Spiritual Healthcare Practices: none Gnosticism Healthcare Practices: Orthodoxy Cultural Healthcare Practices: none Are you DNR?: No Advance Directives: No Advance Directives Information Provided: Yes (will bring copy DOS) Advance Directives on File: No Recently lost weight without trying: No Eating poorly because of decreased appetite: No Nutrition Risks: No Nutritional Risk FDLMP: n/a Poor oral hygiene: No Meds Allergies Allergy/AdvReac Type Severity Reaction Status Date / Time bee pollen [bee stings] Allergy Intermediate localized Verified 11/22/24 09:01 swelling Sulfa (Sulfonamide Allergy Mild Rash Verified 11/01/24 08:50 Antibiotics) Home Medications ?Medication ?Instructions ?Recorded ?Confirmed ?Last Taken ?Type acetaminophen 500 mg tablet 500 mg PO Q8H PRN Pain 11/21/24 11/21/24 12/16/24 History (Acetaminophen Extra Strength) aspirin 81 mg tablet,delayed 81 mg PO DAILY 11/21/24 11/21/24 12/16/24 History release cholecalciferol (vitamin D3) 25 25 mcg PO DAILY 11/21/24 11/21/24 12/16/24 History mcg (1,000 unit) capsule (Vitamin D3) epinephrine 0.3 mg/0.3 mL 0.3 mg IM Q10M PRN Anaphylaxis 11/21/24 11/21/24 Unknown History injection, auto-injector (EpiPen 2-Mike) zinc acetate 25 mg (zinc) capsule 25 mg PO 3XW 11/21/24 11/22/24 12/16/24 History ascorbic acid (vitamin C) 1,000 mg 1 g PO BID 11/22/24 11/22/24 12/16/24 History tablet (Vitamin C) Exam Exam Date and Time: 12/17/24 0945 Height,Weight and Vital Signs: Height 5 ft 4.96 in Weight 64 kg Vital Signs Temperature 98.7 F 12/17/24 07:14 Pulse Rate 81 12/17/24 07:14 Respiratory Rate 16 12/17/24 07:14 Blood Pressure 142/72 H 12/17/24 07:14 Pulse Oximetry 95 12/17/24 07:14 Oxygen Delivery Method Room Air 12/17/24 07:14 Temperature 98.7 F 12/17/24 07:14 Pulse Rate 81 12/17/24 07:14 Respiratory Rate 16 12/17/24 07:14 Blood Pressure 142/72 H 12/17/24 07:14 Pulse Oximetry 95 12/17/24 07:14 Oxygen Delivery Method Room Air 12/17/24 07:14 Airway Mallampati Class: II TM Dist: <=3cm Neck ROM: Limited Loose/Missing/Broken Teeth: Yes (chipped #24) Heart: S1S2 Lungs: CTAB Assessment and Plan Assessment Anesthesia Assessment: Anesthesia Plan Discussed and Chart Reviewed Final Anesthetic Review Family History of Problems with Anesthesia: No History of Problems with Anesthesia: No NPO: Yes ASA Class: II Final Preanesthetic Review: No Changes in Pt Med Stat, Meds/Allgs Chart Reviewed, Consent Obtained/Reviewed and Anes Risks/Benef Reviewed Patient Risk: Low Procedure Risk: Intermediate Anesthetic Plan Anesthetic Plan: GA and Agree w/ Assess. and Plan Disposition: Standard PACU
[2024-12-17] MEDS: ceFAZolin Sodium/Dextrose,Iso 2 GM/50 ML PIGGYBACK IV (10:15)
--- NOTE | 2024-12-17 11:01 | W.PM.OPN ---
Operative Note Operative Note Date of Service: 12/17/24 Narrative: Preoperative Diagnosis: L4-5 spinal stenosis/lateral recess stenosis/neural foraminal stenosis Operation: L4-5 Laminotomy, Partial facetectomy and foraminotomy with use of microscope Consent Informed Consent was obtained for this operation. I have explained the nature, purpose and benefits of the operation. I have discussed the risks and benefit of the operation including possible complications or adverse events with patient/family. Alternative(s) were discussed with the patient with their relative benefits and risks as well as the consequences of not accepting the operation were included in obtaining consent. Surgeon: BETHANIE SALGADO MD, PHD Procedure Assisted By: Isaac Wiggins Description of Procedure This patient is suffering from predominantly left lumbar radiculopathy with neurogenic claudication symptoms. An MRI shows lumbar degenerative scoliosis of a more importantly there is L4-5 central stenosis, lateral recess stenosis and a small disc herniation compressing the left L5 nerve root.. The patient was offered a decompression. The procedure complications were explained. The patient was consented. The patient was brought to the operating room and endotracheally intubated. The patient was turned in prone position on the Donavan frame. Prep and drape was done followed by timeout. The Physician congressional assistant provided access. A mid lumbar incision was made followed by release of the paravertebral muscle on the left side to expose the L4-5 lamina and facet joints. An intraoperative x-ray was obtained to confirm the correct level. The microscope was brought in. I took over the procedure. The high-speed drill was used to do a left L4-5 laminotomy until flavum ligament was reached. A #2 Kerrison was used to expand the laminotomy near flush to the pedicles and to include a partial facetectomy. The flavum ligament was opened and resected with a #3 Kerrison to decompress the underlying thecal sac. The flavum ligament was removed to decompress the lateral recess and the exiting L5 nerve root. A medial facetectomy needed to be done to get an adequate decompression of the left L5 nerve root. A disc bulge was seen. A few pieces of disc were removed but this was not the culprit. The patient was turned contralaterally. Flavum ligament was removed from the midline in this way I was able to reach the contralateral side to provide further decompression. A long nerve hook could be easily passed along the medial side of the pedicles as a sign of adequate decompression. The microscope was removed. Hemostasis was done. The physician congressional assistant close the Incision in 2 layers. Steri-Strips were used to approximate incision. An OpSite with Tegaderm was used to cover the incision. All sponge needle counts were correct. Patient was extubated and transported in stable is to recovery room. Anesthesia: General Estimated Blood Loss (ml): 20 mL Complications: None Duration of Surgery: Under 60 Minutes Postoperative Plan: Discharge to home
== END 2024-12-17 13:13 | disposition home or self-care (01) ==
PROVIDERS: PCP Internal Medicine; Visit Provider Neurological Surgery
PROC: (CPT 63047; principal; 2024-12-17 10:00)
DX: M48.062 Spinal stenosis, lumbar region with neurogenic claudication (principal); M41.56 Other secondary scoliosis, lumbar region; J44.9 Chronic obstructive pulmonary disease, unspecified; Q21.12 Patent foramen ovale; Z86.73 Personal history of transient ischemic attack (TIA), and cerebral infarction without residual deficits; Z79.82 Long term (current) use of aspirin; Z79.899 Other long term (current) drug therapy; Z88.2 Allergy status to sulfonamides; F17.210 Nicotine dependence, cigarettes, uncomplicated
CPT/HCPCS: 63047; J0131; J0690; J1100; J2003; J2405; J2704; J3010

== ENCOUNTER → 2024-12-17 06:48 | Outpatient (BNV) | payer MEDICARE, SELFPAY | PROVIDERS: PCP Internal Medicine; Visit Provider Neurological Surgery | DX: M48.062 Spinal stenosis, lumbar region with neurogenic claudication (principal) | CPT/HCPCS: 63047; 99499 ==

== ENCOUNTER 2025-01-10 11:25 | Outpatient (AMB) | payer MEDICARE, SELFPAY ==
--- OUTSIDE RECORDS SUMMARY | 2025-01-10 11:53 | XMS_ITS | Patient Health Record ---
Author Organization [facility] Address [address] [place] [address] Care Team Providers Care Repairer Welding Systems And Equipment Name Role Phone Kavya Quintana Unavailable [phone] MOE SAGEA Unavailable [phone] Allergies Allergen (clinical drug ingredient) Drug/Non Drug Allergy documented on EMR Reaction Allergy Type Onset Date Status sulfamethoxazole / trimethoprim Bactrim DS Rash/Hives Drug Allergy Active nitrofurantoin Macrodantin SOB/Feels Ill Drug Allergy Active Results Component Value Reference Range Notes PDF Report Reviewed date:01/19/2024 10:19:31 AM Interpretation: Performing Lab:[facility] [place], [address], [address], [place], Phone - [phone], Director - Laila Notes/Report: PDF Report Reviewed date:02/13/2024 09:51:20 AM Interpretation: Performing Lab:[facility] [place], [address] [facility], Phone - [phone], Director - Shelton Notes/Report: Clinical Information:SRC: URINE Urine Culture, Routine-[id number] Reviewed date:02/13/2024 09:51:59 AM Interpretation: Performing Lab:[facility] [place], [address] [facility] [address] [facility], Phone - [phone], Director - Shelton Notes/Report: Clinical Information:SRC: URINE [...] Tetracycline S Tobramycin S Trimethoprim/Sulfa S Urinalysis, Complete-[id number] Reviewed date:02/13/2024 09:52:22 AM Interpretation: Performing Lab:[facility], [address] [place] [address], [place], Phone - [phone], Director - Shelton Notes/Report: Clinical Information:SRC: URINE Clinical Information:SRC: URINE Specific [place] 1.005 1.005-1.030 pH 7.0 5.0-7.5 Urine-Color Yellow [...] NEG UROBILINOGEN NEG BILIRUBIN NEG BLOOD LG Urine Culture, Routine-[id number] Reviewed date:01/19/2024 09:42:48 AM Interpretation: Performing Lab:Pamela Horowitz, [address], [place], Phone - [phone], Director - [facility] Notes/Report: Urine Culture, Routine Final report Result [...] Report Reviewed date:02/20/2024 05:33:15 PM Interpretation: Performing Lab:[facility], [address], [address], [place], Phone - [phone], Director - [facility] Notes/Report: Clinical Information:SRC: Urine Culture, Routine-[id number] Reviewed date:02/20/2024 05:32:28 PM Interpretation: Performing Lab:[facility], [address], [address], [place], Phone - [phone], Director - [facility] Notes/Report: Clinical Information:SRC: Clinical Information:SRC: Urine [...] ER INTERCOURSE for 90 days 11/04/2024 Active Estradiol Vaginal Cream 0.01% 1 Gram to the affected area Vaginal/Vulva Twice a week for 90 Days OCC 07/18/2024 Active valACYclovir HCl 500 MG 2 TABS Orally TW ICE DAILY FOR 10 DAYS THEN 1 TAB DAILY FOR 90 DAYS. for 90 days 07/10/2024 Active Aspirin 162.5 MG 1 capsule Orally Onc e a day for 30 day(s) Active Tylenol 325 MG 1 tablet as needed Orally every 4 hrs Active Vitamin D3 1000 IU 1 ORAL daily for -3 Quinn-MJ 08/03/2011 Active Aloe Vera 25 MG Orally unknown dose A ctive Vitamin C 500MG 1 ORAL daily for -3 Quinn-MJ 08/03/2011 [...] Status Risk Notes Problem Postmenopausal atrophic vaginitis (95318841) Postmenopausal atrophic vaginitis (N95.2) Active confirmed Problem Ventricular septal defect (68081823) Ventricular septal defect (Q21.0) Active confirmed Problem Occlusion of cerebral artery (disorder) (63078003) Unspecified cerebral artery occlusion without mention of cerebral infarction (434.90) Active confirmed Major Problem Menopausal symptom (69931922) Symptomatic menopausal or female climacteric states (627.2) Active confirmed Major Problem Ventricular septal defect (98894090) Ventricular septal defect (745.4) Active confirmed Major Problem Gynecological examination normal (862694543255767) Routine gynecological examination (V72.31) Active confirmed Major Problem Special screenin g for malignant neoplasms, colon (V76.51) Active confirmed Major Vital Signs Temperature 98.1 degrees Fahrenheit 07/10/2024 Blood pressure diastolic 80 mm Hg 12/11/2024 Height 65.8 in 12/11/2024 Blood pressure systolic 130 mm Hg 12/11/2024 Weight 140 lbs 12/11/2024 BMI 22.73 kg/m2 12/11/2024 Encounters Encounter Location Date Provider Diagnosis [facility] [address] [address] 01/15/2024 CHAD SAGE Dysuria R30.0 and Frequency of micturition R35.[address] [address] 02/09/2024 Kavyabakari Quintana Urinary tract infection, site not specified N39.0 and Postmenopausal atrophic vaginitis N95.[address] [address] 07/10/2024 Kavya Quintana Other specified noninflammatory disorders of vulva and perineum N90.[address] [address] 12/11/2024 Kavyabakari Valadezva Encounter for gynecological examination (general) (routine) without abnormal findings Z01.419 ; Encounter for screening mammogram for malignant neoplasm of breast Z12.31 and Postmenopausal atrophic vaginitis N95.[address] [address] 01/15/2024 Kavyabakari Quintana Abscess of vulva N76 .[address] [address] 01/18/2024 Kavya Quintana Total [address] [address] 02/23/2024 Kavya Quintana Total [address] [address] 07/10/2024 Kavya Quintana Total [address] [address] 07/12/2024 Kavya Quintana Total [address] [address] 07/18/2024 Kavya Quintana Total [address] [address] 07/18/2024 Kavya Quintana [facility] [address] [facility] [address] [place] [address] 11/04/2024 Kavya Quintana [facility] [address] [place] [address] 12/11/2024 Kavya Quintana [facility] [address] [place] [address] 12/11/2024 Kavya Quintana Assessments Encounter Date Diagnosis (ICD Code) Assessment Notes Treatment Notes Treatment Clinical Notes Section Notes 01/15/2024 Dysuria (ICD-10 - R30.0) plenty of [...] MG DAILY FOR 3 TO 6 MONTHS. 12/11/2024 Encounter for gynecological examination (general) (routine) without abnormal findings (ICD-10 - Z01.419) NO MORE PAP TESTS. 12/11/2024 Encounter for screening mammogram for malignant neoplasm of breast (ICD-10 - Z12.31) REGULAR MAMMOGRAMS AND SBE'S WERE RECOMMENDED. 01/15/2024 Frequency of micturition (ICD-10 - R35.0) 12/11/2024 Postmenopausal atrophic vaginitis (ICD-10 - N95.2) DISCUSSED BENEFITS AND RISKS OF INTRAVAGINAL ESTROGEN. ENCOURAGED PAT TO USE ESTRADIOL CREAM. DETAILED INSTRUCTIONS WERE GIVEN. SHE WILL CALL FOR REFILLS. Plan Of Treatment Pending Test Test Name Order Date MAMMOGRAM, SCREENING 12/29/2014 MAMMOGRAM, SCREENING 06/20/2017 MAMMOGRAM, SCREENING 06/28/2018 MAMMOGRAM, SCREENING 07/16/2020 MAMMOGRAM, SCREENING 10/31/2022 MAMMOGRAM, SCREENING 12/11/2024 Urinalysis 04/01/2022 Urinalysis 03/20/2020 Urinalysis 07/16/2020 ONE SWAB 07/10/2024 COMPLETE URINALYSIS 09/25/2023 THIN PREP,HPV,ROGER IF HPV+ (>29YR)(DIAG) 10/31/2022 THIN PREP,HPV,ROGER IF HPV+ (>29YR)(SCRN) 06/28/2018 BONE DENSITY 07/22/2021 BONE DENSITY 12/11/2024 MM Digital Mammo Screening 12/11/2024 MM Digital Mammo Screening 07/22/2021 MM Digital Mammo Screening 12/01/2023 MM Digital Mammo Screening 10/31/2022 MM Digital Mammo Screening 07/16/2020 MM Digital Mammo Screening 03/20/2020 MM Digital Mammo Screening 06/28/2018 MM Digital Mammo Screening 06/20/2017 LT BREAST STEREOTACTIC CORE BX 3 Next Appt Details Provider Name:Kavya castellon, 12/15/2025 08:40:00 AM, [address] [place] [address], [address], [place], [address], Insurance Providers Payer Name Payer Address Payer Phone Subscriber Number Group Number Insured Name Patient Relationship to Insured Coverage Start Date Coverage End Date MEDICARE [address] [place] [id number] LISA SNYDER Self - patient is the insured MEDEX [address] [place] [address] [id number] DARLINE SNYDERN Self - patient is the insured Medical [...] of vulva N76.4 Surgical History Surgery Date(Month/Year) [place] Teeth Gum Graft Colonoscopy Hospitalization History Reason Date(Month/Year) S/P Stroke 1997 09 Vaginal Delivery
--- OUTSIDE RECORDS SUMMARY | 2025-01-10 11:53 | XMS_ITS ---
Author Organization Total [facility] Address [address] [place] [address] Care Team Providers Care Near Eastern Archaeology Lecturer Name Role Phone Kavya Quintana Unavailable [phone] REASON FOR VISIT 2023 SCREENING MAMMO REQ Encounters Encounter Location Date Provider Diagnosis [facility] [address] [place] [address] 12/11/2024 Kavya Quintana Plan Of Treatment Next Appt Details Provider Name:Kavya castellon, 12/15/2025 08:40:00 AM, [address], [address], [place], [address], Progress Notes * VERENA SNYDEROB: [birth year] (69 yo F)Acc No.[id number]:12/11/2024 Patient:?LISA SNYDER :1955???Age:69 Y???Sex:Female Address:[address], , [place], [address] * true * Date:? Generated for Printi ng/Favargheseg/eTransmitting on:?01/10/2025 11:52 AM EDT
--- OUTSIDE RECORDS SUMMARY | 2025-01-10 11:53 | XMS_ITS ---
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+ Medications Medication SIG (Take, Route, Frequency, Duration) [...] 25 MG Orally unknown dose A ctive Aspirin 162.5 MG 1 capsule Orally Onc e a day for 30 day(s) Active Tylenol 325 MG 1 tablet as needed Orally every 4 hrs Active Vitamin C 500MG 1 ORAL daily [...] Problem Status W/U Status Risk Notes Problem Ventricular septal defect (91656496) Ventricular septal defect (Q21.0) Active confirmed Vital Signs Blood pressure systolic 130 mm Hg 12/12/19 25 Blood pressure diastolic 80 mm Hg 025 Height 65.8 in 12/11/2024 Weight 140 lbs 12/11/2024 BMI 22.73 kg/m2 12/11/2024 Encounters Encounter Location Date Provider Diagnosis [address] [place] [address] 12/11/2024 Kavya Quintana Encounter for gynecological examination (general) (routine) without abnormal findings Z01.419 ; Encounter for screening mammogram for malignant neoplasm of breast Z12.31 and Postmenopausal atrophic vaginitis N95.2 Assessments Encounter Date Diagnosis (ICD Code) Assessment Notes Treatment Notes Treatment Clinical Notes Section Notes 12/11/2024 Encounter for gynecological examination (general) (routine) without abnormal findings (ICD-10 - Z01.419) NO MORE PAP TESTS. 12/11/2024 Encounter for screening mammogram for malignant neoplasm of breast (ICD-10 - Z12.31) REGULAR MAMMOGRAMS AND SBE'S WERE RECOMMENDED. 12/11/2024 Postmenopausal atrophic vaginitis (ICD-10 - N95.2) DISCUSSED BENEFITS AND RISKS OF INTRAVAGINAL ESTROGEN. ENCOURAGED PAT TO USE ESTRADIOL CREAM. DETAILED INSTRUCTIONS WERE GIVEN. SHE WILL CALL FOR REFILLS. Plan Of Treatment Treatment Notes Assessment Notes Encounter for gynecological examination (general) (routine) without abnormal findings NO MORE PAP TESTS. Encounter for screening mamm ogram for malignant neoplasm of breast REGULAR MAMMOGRAMS AND SBE'S WERE RECOMMENDED. Postmenopausal atrophic vaginitis DISCUSSED BENEFITS AND RISKS OF INTRAVAGINAL ESTROGEN. ENCOURAGED PAT TO USE ESTRADIOL CREAM. DETAILED INSTRUCTIONS WERE GIVEN. SHE WILL CALL FOR REFILLS. Pending Test Test Name Order Date MAMMOGRAM, SCREENING 12/11/2024 BONE DENSITY 12/11/2024 MM Digital Mammo Screening 12/11/2024 Next Appt Details Follow Up: 1 Year, Reason: Provider Name:Kavya Moses Luciano castellon, 12/15/2025 08:40:00 AM, [address], [address], [place], [address], Progress Notes * VERENA SNYDEROB: [birth year] (69 yo F)Acc No.[id number]:12/11/2024 PROGRESS NOTES Patient:?LISA SNYDER Appointment Provider:?Kavya castellon M.D. :1955???Age:69 Y???Sex:Female D ate:12/11/2024 Address:[address] [place] [address] , 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 PAT ENTERED MENOPAUSE IN HER 50'S.? SHE IS AND C/O DYSPAREUNIA.? SHE HAD BEEN GIVEN RX FOR ESTRADIOL CREAM IN THE PAST BUT SHE IS NOT DILIGENT IN APPLYING THIS. SHE HAS UTI'S ASSOCIATED WITH SEXUAL ACTIVITY.? SHE TAKES CEPHALEXIN 50 MG AFTER IC AND HAS NOT HAD A UTI IN YEARS. SHE SUFFERED A CVA IN 1997.? SHE HAS RECOVERED FULLY.? NO RESIDUAL NEUROLOGIC DEFICITS. SHE HAD A VULVAR ABSCESS THAT WAS I&D'ED IN 2023.? NO RECURRENCE. LEFT BREAST BIOPSY IN 2022 WAS BENIGN. HER LAST MAMMOGRAM DONE IN AUG 2024 SHOWED BREASTS ARE NOT DENSE AND WAS NORMAL. HER LAST PAP TEST IN 2022 WAS NEGATIVE AND HPV NEGATIVE.? SHE HAS NO HX OF ABNORMAL PAP TEST. HER LAST BMD IN 2021 SHOWED THE LOWEST T-SCORE TO BE -1.1 AT THE FEMORAL NECK.? FRAX=7.5%/0.9%. SHE HAD A COLONOSCOPY DONE IN 2019, Q 10 YEARS. ???Annual:? Patient presents for annual exam, ages 60-85, postmenopausal. ?General Health Maintenance:?Current breast complaints:?no breast pain, mass, discharge, or skin changes ?Urinary problems:?patient reports no urinary health problems or bowel health problems ?Calcium intake:?takes adequate calcium via diet and supplementation ?Significant ROAD FREIGHT FIRER problems:?no significant supervisor esters and emulsifiers symptoms or problems * ROS:?general:?no?chest pain.?no?palpitations.?no?headache.?no?cough.?no?shortness of breath.?no?fever.?no?unexplained weight loss.?no?nausea/vomiting.?no?change in bowel movements.?no blood in stool.?no?genitourinary complaints.?no?skin complaints.? * Medical History:? 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 Control:?none.?Menopause: ?Began at age: ?47 ???Colonoscopy?08/07/17.?Bone Density:?01/07/22, 02/10/17 normal, done at [facility], 2007.? * OB History:?Total pregnancies?1.?Total living children?1.?NVD?1.? * Surgical History:?[place] [facility] Gum Graft Colonoscopy * Hospitalization/Major Diagno stic Procedure:?1 Vaginal Delivery S/P Stroke 1997 * Family History:?Mother: dece ased, rheumatic heart disease.?Father: , brain tumor-benign.? * Social History:?Tobacco Use:?Tobacco Control (Standard)?Tobacco use:?Current smoker ?How often do you smoke cigarettes??Every day ?How many cigarettes a day do you smoke??5 or less ???Sexual History:?Sexual History?Had sex in the past 12 months (vaginal, oral, or anal)?: Yes, with: Men only, Use protection?: No, Have you ever had a Sexually transmitted disease?: No.?Details of Sexual History?Are you sexually active??Yes ???Drugs/Alcohol:?Drugs?Have you used drugs other than those for medical reasons in the past 12 months??No ???Miscellaneous:?Children: yes, 1. ?Exercise: yes, regularly. ?Home smoke detector use: yes. ?Living with: spouse. ?Marital status: . ?Natural support system: yes. 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 ?Sexually active: yes, monogamous relationship. ???Drug/Alcohol:?AUDIT-C (Standard)?Did you have a drink containing alcohol in the past year??Yes ?How often did you have six or more drinks on one occasion in the past year??Never (0 point) ?How many drinks did you have on a typical day when you were drinking in the past year??1 or 2 drinks (0 point) ?How often did you have a drink containing alcohol in the past year??Monthly or less (1 point) ?Points?1 ?Interpretation?Negative * Medications:?TakingTylenol 3 25 MG Tablet 1 tablet as needed Orally every 4 hrs Aspirin 162.5 MG Capsule Extended Release 24 Hour 1 capsule Orally Once a day Vitamin C 500MG 60 1 ORAL daily , Notes to Pharmacist: Quinn-MJAloe Vera 25 MG Capsule Orally , Notes to Pharmacist: unknown doseVitamin D3 1000 IU 30 1 ORAL daily , Notes to Pharmacist: Quinn-MJvalACYclovir HCl 500 MG Tablet 2 TABS Orally TWICE DAILY FOR 10 DAYS THEN 1 TAB DAILY FOR 90 DAYS. Estradiol Vaginal Cream 0.01% Cream 1 Gram to the affected area Vaginal/Vulva Twice a week , Notes to Pharmacist: OCCCephalexin 500 MG Capsule 1 capsule Orally AFTER INTERCOURSE Medication List reviewed and reconciled with the patientTaking Tylenol 325 MG Tablet 1 tablet as needed Orally every 4 hrs Taking Aspirin 162.5 MG Capsule Extended Release 24 Hour 1 capsule Orally Once a day Taking Vitamin C 500MG 60 1 ORAL daily , Notes to Pharmacist: Quinn-MJTaking Aloe Vera 25 MG Capsule Orally , Notes to Pharmacist: unknown doseTaking Vitamin D3 1000 IU 30 1 ORAL daily , Notes to Pharmacist: Quinn-MJTaking valACYclovir HCl 500 MG Tablet 2 TABS Orally TWICE DAILY FOR 10 DAYS THEN 1 TAB DAILY FOR 90 DAYS. Taking Estradiol Vaginal Cream 0.01% Cream 1 Gram to the affected area Vaginal/Vulva Twice a week , Notes to Pharmacist: OCCTaking Cephalexin 500 MG Capsule 1 capsule Orally AFTER INTERCOURSE Medication List reviewed and reconciled with the patient * Allergies:?Bactrim DS: Rash/ Hives - AllergyMacrodantin: SOB/Feels Ill - Allergyno[Allergies Verified] Objective: * Vitals:?Ht: 65.8 in, Wt: 140 lbs, BMI:22.73Index, BP: 130/80 mm Hg. * Examination: ???General Exam: ?CONSTITUTIONAL:?General Appearance:?alert, in no acute distress, normal, well nourished ?NECK/THYROID:?Inspection/Palpation:?normal ?Thyroid:?normal size and shape ?RESPIRATORY:?Auscultation: clear to auscultation bilaterally, Respiratory Effort: normal.?CARDIOVASCULAR:?Auscultation: regular rate and rhythm.?BREAST, Right:?Inspection/Palpation:?no discharge, no masses present, no nipple retraction, no skin changes, no skin dimpling, no tenderness, no lymphadenopathy, no axillary mass, no axillary tenderness ?BREAST, Left:?Inspection/Palpation:?no discharge, no masses present, no nipple retraction, no skin changes, no skin dimpling, no tenderness, no lymphadenopathy, no axillary mass, no axillary tenderness ?GASTROINTESTINAL:?Abdomen:?no masses, nontender, nondistended ?Liver and Spleen:?normal ?Hernias:?no hernias present, no inguinal adenopathy ?MUSCULOSKELETAL:?Inspection/Palpation:?no clubbing, cyanosis, or edema ?SKIN:?Skin:?normal ?NEURO/PSYCH:?Orientation:?time , place, person ?Mood/Affect:?normal?Genitourinary: ?EXTERNAL GENITALIA:?External Genitalia:?normal, no lesions ?VAGINA:?Vagina:?normal appearance, no abnormal discharge, no lesions ?BLADDER:?Bladder:?no mass, nontender ?URETHRA:?Urethra:?no erythema or lesions present ?CERVIX:?Cervix:?no lesions, nontender ?UTERUS:?Uterus:?nontender, normal contour, normal mobility, normal size ?ADNEXA:?Adnexa:?no masses, no tenderness ?ANUS AND PERINEUM:?Anus/Perineum:?visually normal??? Assessment: * Assessment: 1.?Encounter for gynecologic al examination (general) (routine) without abnormal findings - Z01.419???2.?Encounter for screening mammogram for malignant neoplasm of breast - Z12.31???3.?Postmenopausal atrophic vaginitis - N95.2??? Plan: * Treatment: 2.?Encounter for screening m ammogram for malignant neoplasm of breast?Imaging: MM Digital Mammo Screening Notes: REGULAR MAMMOGRAMS AND SBE'S WERE RECOMMENDED.?? 3.?Postmenopausal atrophic v aginitis? Notes: DISCUSSED BENEFITS AND RISKS OF INTRAVAGINAL ESTROGEN. ENCOURAGED PAT TO USE ESTRADIOL CREAM. DETAILED INSTRUCTIONS WERE GIVEN. SHE WILL CALL FOR REFILLS.?? * Imaging:? * ?Imaging: BONE DENSITY ?Imaging: MAMMOGRAM, SCREENING* * Procedure Codes:? * Preventive Medicine:? ??YOUR PREVENTIVE WELLNESS PLAN:?Osteoporosis prevention?Calcium, D, strength training.?Breast Cancer Screening (Mammogram):?annually.?Cervical Cancer Screening (Pap Smear):?q 3 years with HPV screen.?Colorectal Cancer Screening:?q 10 years.? * Follow Up:?1 Year * Images: Billing Information: * Visit Code:? [id number] Preventive Care Est Pt. Age 65 and over. * Procedure Codes:? * Sign off status: Completed true * Appointment Provider:?Kavay Quintana M.D. Date:?12/11/2024 Generated for Armen luis/Stefan/eTdennis on:?01/10/2025 11:52 AM EDT History and Physical Notes * HPI (History of Present Illness) Category Sub-Category Detail Notes Category Not es New/Follow-up Patient Consult PAT ENTERED MENOPAUSE IN HER 50'S. SHE IS AND C/O DYSPAREUNIA. SHE HAD BEEN GIVEN RX FOR ESTRADIOL CREAM IN THE PAST BUT SHE IS NOT DILIGENT IN APPLYING THIS. SHE HAS UTI'S ASSOCIATED WITH SEXUAL ACTIVITY. SHE TAKES CEPHALEXIN 50 MG AFTER IC AND HAS NOT HAD A UTI IN YEARS. SHE SUFFERED A CVA IN 1997. SHE HAS RECOVERED FULLY. NO RESIDUAL NEUROLOGIC DEFICITS. SHE HAD A VULVAR ABSCESS THAT WAS I&D'ED IN 2023. NO RECURRENCE. LEFT BREAST BIOPSY IN 2022 WAS BENIGN. HER LAST MAMMOGRAM DONE IN AUG 2024 SHOWED BREASTS ARE NOT DENSE AND WAS NORMAL. HER LAST PAP TEST IN 2022 WAS NEGATIVE AND HPV NEGATIVE. SHE HAS NO HX OF ABNORMAL PAP TEST. HER LAST BMD IN 2021 SHOWED THE LOWEST T-SCORE TO BE -1.1 AT THE FEMORAL NECK. FRAX=7.5%/0.9%. SHE HAD A COLONOSCOPY DONE IN 2018, Q 10 YEARS. Annual General Health Maintenance: Current breast complaints:: no breast pain, mass, discharge, or skin changes Urinary problems:: patient r eports no urinary health problems or bowel health problems Calcium intake:: takes adequ ate calcium via diet and supplementation Significant ROAD FREIGHT FIRER problems:: n o significant supervisor esters and emulsifiers symptoms or problems Examination Category Sub-Category Detail Notes Category Not es General Exam CONSTITUTIONAL: General Appearan ce:: alert, in no acute distress, normal, well nourished NECK/THYROID: Thyroid:: normal size and shape Inspection/Palpation:: normal RESPIRATORY: Auscultation: clear to auscultation bilaterally, Respiratory Effort: normal CARDIOVASCULAR: Auscultation: regula r rate and rhythm GASTROINTESTINAL: Hernias:: no hernias present, no inguinal adenopathy Liver and Spleen:: normal Abdomen:: no masses, nontender, nondiste nded MUSCULOSKELETAL: Inspection/Palpation:: no clubb ing, cyanosis, or edema SKIN: Skin:: normal NEURO/PSYCH: Mood/Affect:: normal Orientation:: time , place, person BREAST, Right: Inspection/Palpation :: no discharge, no masses present, no nipple retraction, no skin changes, no skin dimpling, no tenderness, no lymphadenopathy, no axillary mass, no axillary tenderness BREAST, Left: Inspection/Palpation :: no discharge, no masses present, no nipple retraction, no skin changes, no skin dimpling, no tenderness, no lymphadenopathy, no axillary mass, no axillary tenderness Genitourinary EXTERNAL GENITALIA: External Genitalia:: nor mal, no lesions VAGINA: Vagina:: normal appearance, no a bnormal discharge, no lesions BLADDER: Bladder:: no mass, nontender URETHRA: Urethra:: no erythema or lesions present CERVIX: Cervix:: no lesions, nontender UTERUS: Uterus:: nontender, normal conto ur, normal mobility, normal size ADNEXA: Adnexa:: no masses, no tendernes s ANUS AND PERINEUM: Anus/Perineum:: visually norm al
--- OUTSIDE RECORDS SUMMARY | 2025-01-10 11:53 | XMS_ITS | Clinical Summary ---
Author Organization [facility] Address [address] [place] [phone] Phone Care Team Providers Care Ems Manager Name Role Phone Danielle Seo MD Primary Care Provider [phone] Surgical History Surgery Date Site/Laterality Comments STEREOTACTIC [...] Vaccines (1 of 2) 2003 RSV Immunization Adult Patients (1 - Risk 60-74 years 1-dose series) 2013 Colorectal Cancer Screening: Colonoscopy 08/07/2022 Depression Screening 08/07/2022 Falls Risk Assessment 08/07/2022 Hepatitis C Screening 08/07/2022 Medicare Annual Wellness Visit 08/07/2022 Social Influencers of Health Screening 08/07/2022 COVID-19 Vaccine ( season) 2024 Influenza Vaccine (Season Ended) 2025 Breast Cancer Screening 08/07/2026 08/07/20, 06/23/2023, 01/07/2022, [...] age to complete this topic Meningococcal B Vaccine Aged Out No l onger eligible based on patient's age to complete [...] [facility], [address] [place] [address], [id number], . -------- FINAL REPORT -------- Dictated By: Erica Thompson Dictated Date: 08/07/2024 09:39 ET Assigned Physician: Erica Thompson Reviewed and Electronically Signed By: Erica Thompson Signed Date: 08/07/2024 09:42 ET Workstation ID: [id number] Transcribed By: Self Edit Transcribed Date: 08/07/2024 [...] [facility], [address] [place] [address], [id number], . -------- FINAL REPORT -------- Dictated By: Erica Thompson Dictated Date: 08/07/2024 09:39 ET Assigned Physician: Erica Thompson Reviewed and Electronically Signed By: Erica Thompson Signed Date: 08/07/2024 09:42 ET Workstation ID: [id number] Transcribed By: Self Edit Transcribed Date: 08/07/2024 09:39 ET us Self Referral Sppl IMG BI PROCEDURES Final Resul t * NICK DEXA AXIAL SKELETON (01/07/2022 3:04 PM EDT) Anatomical Region Laterality Modality Mammography 01/07/2022 1:36 PM EDT Narrative 01/07/2022 3:04 PM EDT [facility] Diagnostic Imaging Department [address] [place] [address] Patient: ??LISA SNYDER ?/Age/Sex: 1955 - 66 - F Unit#: ??[id number] ? Location/Status: ??SPDIMAM/REG CLI ? Mnemonic/Ordering Site: ??MAMDEXAAX/SPMAM Ordering Physician: ??KAVYA PETERS MD Nick Dexa Axial Skeleton - 01/07/22 - 4522 History: Low estrogen state due to menopause. Current smoker. Comparison: 02/10/17 Findings: Bone densitometry is performed utilizing dual energy x-ray absorptiometry (DXA) in the [employer] unit. The lumbar spine and proximal femora [...] 7.5 percent Hip 0.9 percent. IMPRESSION: Osteopenia. [id number] Dictating Physician: ??BRITTANIE ORTEGA MD Electronically Signed by: ??BRITTANIE ORTEGA MD Dic Date/Time: ??01/07/22 1503 Sign date/Time: ??01/07/22 1504 Procedure Note Brittanie Ortega MD - 08/24/2022 [facility] Diagnostic Imaging Department [address] [place] [address] Patient: LISA SNYDER /Age/Sex: 1955 - 66 - F Unit#: [id number] Location/Status: SPDIMA/REG CLI [facility] Ordering Physician: KAVYA PETERS MD Nick Dexa Axial Skeleton - 01/07/22 - 1432 History: Low estrogen state due to menopause. Current smoker. Comparison: 02/10/17 Findings: Bone densitometry is performed utilizing dual energy x-ray absorptiometry(DXA) in the [employer] unit. The lumbar spine and proximal femora [...] Osteoporotic 7.5percent Hip 0.9 percent. IMPRESSION: Osteopenia. [id number] Dictating Physician: BRITTANIE ORTEGA MD Electronically Signed by: BRITTANIE ORTEGA MD Dic Date/Time: 01/07/22 1503 Sign date/Time: 01/07/22 1504 Kavya Peters MD IMG BI PROCEDURES Final Re sult from Last 3 Months or Most Recently Relevant to Health Maintenance Insurance MEDICARE [facility] Care Teams Ems Manager Relationship Specialty Start Date End Date Danielle Seo MD [address] [place] [address] PCP - General Internal Medicine 07/31/24
--- OUTSIDE RECORDS SUMMARY | 2025-01-10 11:53 | XMS_ITS ---
Author Organization [facility] Address [address] [place] [address] Care Team Providers Care Compliance Analyst Name Role Phone Kavya Quintana Unavailable [phone] REASON FOR VISIT OK FOR INTERVAL VISIT 2025 Encounters Encounter Location Date Provider Diagnosis [facility] [address] [place] [address] 12/11/2024 Kavya Quintana Plan Of Treatment Next Appt Details Provider Name:Kavya castellon, 12/15/2025 08:40:00 AM, [address], [address], [place], [address], Progress Notes * VERENA SNYDEROB: [birth year] (69 yo F)Acc No.[id number]:12/11/2024 Patient:?LISA SNYDER :1955???Age:69 Y???Sex:Female Address:[address], , [place], [address] * true * Date:? Generated for Printi ng/Laineg/eTransmitting on:?01/10/2025 11:53 AM EDT
--- NOTE | 2025-01-10 12:22 | A.SPINEOV_ITS ---
Intake Visit Reasons: 1st post op Intake Note: Mrs. Low is here today for her 1st post-op. Horses Or Mules Teamster Required: No Allergies bee pollen [bee stings] Allergy (Intermediate, Verified 11/22/24 09:01) localized swelling Sulfa (Sulfonamide Antibiotics) Allergy (Mild, Verified 11/01/24 08:50) Rash Assessment & Plan Assessment & Plan (1) Status post lumbar spine surgery for decompression of spinal cord: Code(s): Z98.890 - Other specified postprocedural states Category: Surgical Plan Dear colleague, On 01/10/2025 I saw for 1st postoperative visit Maureen Low. She is status post L4-5 decompression. The left leg pain is gone. She does have right-sided thigh pain which may be related to inactivity. When an extensive discussion of what to do and not to do. She is allowed to slowly return to activities. She can go on a stationary bike. I would postpone yard work for another 3 weeks. On exam, the incision is healed. In summary, Mrs. Low is recovering well from her surgery. I would like to follow-up in 6 weeks. Mikhail Pandya MD, PhD Spine Fellowship Trained Neurosurgeon Director, [facility] Coding Level of Care Code Global (94447) Diagnoses Status post lumbar spine surgery for decompression of spinal cord Z98.890
== END 2025-01-10 12:41 | disposition home or self-care (01) ==
LOC: HO.HNS 11:26
PROVIDERS: PCP Internal Medicine; Visit Provider Neurological Surgery
DX: Z98.890 Other specified postprocedural states (principal)
CPT/HCPCS: 99024

== ENCOUNTER → 2025-01-10 11:25 | Outpatient (BNVA) | payer MEDICARE, SELFPAY | PROVIDERS: PCP Internal Medicine; Visit Provider Neurological Surgery | DX: Z48.811 Encounter for surgical aftercare following surgery on the nervous system (principal); Z98.890 Other specified postprocedural states | CPT/HCPCS: 99212 ==

== ENCOUNTER 2025-02-21 11:14 | Outpatient (AMB) | payer MEDICARE, SELFPAY ==
--- OUTSIDE RECORDS SUMMARY | 2025-02-21 11:37 | XMS_ITS | Patient Health Record ---
Author Organization [facility] Address [address] [facility] [facility] [address] [place] [address] Care Team Providers Care Bean Sprout Laborer Name Role Phone Kavya Quintana Unavailable [phone] Allergies Allergen (clinical drug ingredient) Drug/Non Drug Allergy documented on EMR Reaction Allergy Type Onset Date Status sulfamethoxazole / trimethoprim Bactrim DS Rash/Hives Drug Allergy Active nitrofurantoin Macrodantin SOB/Feels Ill Drug Allergy Active Reason For Referral No Information Medications Medication [...] Status Risk Notes Problem Postmenopausal atrophic vaginitis (39841411) Postmenopausal atrophic vaginitis (N95.2) Active confirmed Problem Ventricular septal defect (83414959) Ventricular septal defect (Q21.0) Active confirmed Problem 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) Unspecified cerebral artery occlusion without mention of cerebral infarction (434.90) Active confirmed Major Problem Menopausal symptom (03063861) Symptomatic menopausal or female climacteric states (627.2) Active confirmed Major Problem Ventricular septal defect (19477608) Ventricular septal defect (745.4) Active confirmed Major Problem Gynecological examination normal (292394052899849) Routine gynecological examination (V72.31) Active confirmed Major Problem Screening for malignant neoplasm of colon (615256702) Special screening for malignant neoplasms, colon (V76.51) Active confirmed Major Vital Signs Temperature 98.1 degrees Fahrenheit 07/10/2024 Blood pressure diastolic 80 mm Hg 12/11/2024 Height 65.8 in 12/11/2024 Blood pressure systolic 130 mm Hg 12/11/2024 Weight 140 lbs 12/11/2024 BMI 22.73 kg/m2 12/11/2024 Encounters Encounter Location Date Provider Diagnosis [facility] [place] [address] [employer] [address] [address] 07/10/2024 Kavya Quintana Other specified noninflammatory disorders of vulva and perineum N90.89 [facility] [place] [address] [employer] [facility] [address] [place] [address] 12/11/2024 Kavya Quintana Encounter for gynecological examination (general) (routine) without abnormal findings Z01.419 ; Encounter for screening mammogram for malignant neoplasm of breast Z12.31 and Postmenopausal atrophic vaginitis N95.2 [place] [address] [employer] [facility] [address] [place] [address] 02/23/2024 Kavya Quintana [place] [address] [place] [address] 07/10/2024 Kavya Wolfueva [facility] [address] [address] 07/12/2024 Kavyabakari WolfQuintana [facility] [address] [address] 07/18/2024 Kavyabakari WolfQuintana [facility] [address] [address] 07/18/2024 Kavya Wolfueva [facility] [address] [address] 11/04/2024 Kavya Valadezva [facility] [address] [address] 12/11/2024 Kavya Valadezva [facility] [address] [address] 12/11/2024 Kavya Valadezva [facility] [address] [address] 02/06/2025 Kavya Valadezva Nipple discharge N64 .52 Assessments Encounter Date Diagnosis (ICD Code) Assessment Notes Treatment Notes Treatment Clinical Notes Section Notes 07/10/2024 Other specified noninflammatory disorders of vulva [...] (ICD-10 - Z01.419) NO MORE PAP TESTS. 02/06/2025 Nipple discharge (ICD-10 - N64.52) 12/11/2024 Encounter for screening mammogram for malignant [...] 06/20/2017 LT BREAST STEREOTACTIC CORE BX 3 [id number] 02/06/2025 [id number] 02/06/2025 Next Appt Details Provider Name:Kavya castellon, 12/15/2025 08:40:00 AM, [address] [place] [address], [address], [place], [address], Insurance Providers Payer Name Payer Address Payer Phone Subscriber Number Group Number Insured Name Patient Relationship to Insured Coverage Start Date Coverage End Date MEDICARE [address] [place] [id number] LISA SNYDER Self - patient is the insured MEDEX [address] [place] [address] [phone] [id number] LISA SNYDER Self - patient is [...] of vulva N76.4 Surgical History Surgery Date(Month/Year) [place] Teeth Gum Graft Colonoscopy Hospitalization History Reason Date(Month/Year) S/P Stroke 1997 1 Vaginal Delivery
--- NOTE | 2025-02-21 11:41 | HO.SPINEOV ---
Intake Visit Reasons: 2nd post op Intake Note: Mrs. Low is here today for her 2nd post-op visit. Mail Censor Required: No Allergies bee pollen (bee stings) Allergy (Intermediate, Verified 11/22/24 09:01) localized swelling Sulfa (Sulfonamide Antibiotics) Allergy (Mild, Verified 11/01/24 08:50) Rash Assessment & Plan Assessment & Plan (1) Status post lumbar spine surgery for decompression of spinal cord: Code(s): Z98.890 - Other specified postprocedural states Category: Medical Plan Dear colleague On 02/21/2025, I saw for 2nd and final postoperative visit Maureen Low. She underwent an L4-5 laminotomy with excellent results. Her radiculopathy has disappeared. I am glad we were able to avoid the large fusion surgery for now is recommended in another institution. I discharged her from further follow-up without restrictions. Mikhail Pandya MD, PhD Spine Fellowship Trained Neurosurgeon Director, [facility] Coding Level of Care Code Global (76560) Diagnoses Status post lumbar spine surgery for decompression of spinal cord Z98.890
== END 2025-02-21 12:06 | disposition home or self-care (01) ==
LOC: HO.HNS 11:15
PROVIDERS: PCP Internal Medicine; Visit Provider Neurological Surgery
DX: Z98.890 Other specified postprocedural states (principal)
CPT/HCPCS: 99024

== ENCOUNTER → 2025-02-21 11:14 | Outpatient (BNVA) | payer MEDICARE, SELFPAY | PROVIDERS: PCP Internal Medicine; Visit Provider Neurological Surgery | DX: Z48.89 Encounter for other specified surgical aftercare (principal); Z98.890 Other specified postprocedural states | CPT/HCPCS: 99212 ==